=== PATIENT | female | born 1970 | race Caucasian/White ===

== ENCOUNTER 2018-12-09 17:26 | Observation (INO) ==
[2018-12-09] MEDS ORDERED: NS 1,000 ML IV ONE ×2 (18:39→21:36)
[2018-12-09 19:39] LABS: BASO# 0.03 X1000 (0.0-0.2); BASO% 0.3 % (0.0-0.8); EOS# 0.24 X1000 (0.0-0.7); EOS% 2.7 % (0.0-10.0); HEMATOCRIT 37.8 % (37.0-47.0); HEMOGLOBIN 11.9 g/dL (12.0-16.0); IMM GRAN# 0.02 X1000 (0.0-0.04); IMM GRAN% 0.2 % (0.0-0.5); LYMPH# 2.15 X1000 (1.2-3.4); LYMPH% 24.1 % (20.5-51.1); MCH 29.6 PG (27-31); MCHC 31.5 g/dL (33-37); MONO# 0.59 X1000 (0.11-0.59); MONO% 6.6 % (1.7-9.3); MPV 12.7 FL (7.4-10.4); NEUT# 5.88 X1000 (1.4-6.5); NEUT% 66.1 % (42.2-75.2); PLT 216 X1000 (130-400); RBC 4.02 XMIL (4.2-5.4); WBC 8.91 X1000 (4.8-10.8)
[2018-12-09 19:59] LABS: ALB/GLOB RATIO 0.9; ALBUMIN 3.6 g/dL (3.5-5.0); CALCIUM 8.8 mg/dL (8.8-10.2); CREATININE 1.3 mg/dL (0.5-0.9); POTASSIUM 4.4 mmol/L (3.5-5.1); TOTAL BILIRUBIN 0.49 mg/dL (0.20-1.00); TOTAL PROTEIN 7.4 g/dL (6.3-8.3)
[2018-12-09] MEDS ORDERED: ZOFRAN IV ONE (20:24)
[2018-12-10] MEDS ORDERED: DECADRON IV ONE (00:20)
[2018-12-10] MEDS ORDERED: PHENERGAN IM ONE (01:05)
[2018-12-10] MEDS ORDERED: PROAMATINE PO ONE (02:28)
[2018-12-10] MEDS ORDERED: NS 1,000 ML IV ONE (02:33)
[2018-12-10] MEDS ORDERED: REGLAN IV ONE (04:11)
--- NOTE | 2018-12-10 06:51 | HISTORY AND PHYSICAL ---
PRIMARY CARE PHYSICIAN: Dr. Roberts. CHIEF COMPLAINT: Passed out. HISTORY OF PRESENTING ILLNESS: A 48-year-old female with a history of coronary disease, hypertension, hyperlipidemia, and GERD, who had presented to the emergency department after she had an episode where she passed out. The patient states that she was going to the bathroom, then the next thing she remembers, she was on the floor. She was brought to the emergency department, where she was found to be somewhat hypotensive. She was given IV fluids, and she responded to it. However, due to her presenting symptoms, it was thought that we will place her for observation for further evaluation and management. At the time of my examination, she had denied any headache, fever, chills, chest pain, shortness of breath, hemoptysis, or weight changes, but complained of having some dizziness. PAST MEDICAL HISTORY: Includes coronary artery disease, hyperlipidemia, GERD, and hypertension. PAST SURGICAL HISTORY: Coronary stent, hysterectomy, cholecystectomy, appendectomy. ALLERGIES: Morphine, ketorolac, tramadol, and onions. CURRENT MEDICATIONS: Aspirin 81 mg p.o. daily, carvedilol 6.25 mg p.o. b.i.d., clonidine 0.1 mg p.o. at bedtime. Lexapro 20 mg p.o. daily, estradiol 1 mg p.o. daily, hydrocortisone 10 mg p.o. b.i.d., ibuprofen 800 mg p.o. q.6 hours p.r.n., losartan 100 mg p.o. daily, omeprazole 20 mg p.o. daily, quetiapine 150 mg p.o. daily, verapamil 120 mg p.o. at bedtime. SOCIAL HISTORY: She denies any history of smoking, alcohol, or illicit drug use. FAMILY HISTORY: Positive for coronary disease in mother and father. REVIEW OF SYSTEMS: Fourteen point review of systems as listed in HPI. Other systems all negative. PHYSICAL EXAMINATION: GENERAL: Cooperative, friendly female. She is resting more comfortably now. VITAL SIGNS: Temperature 98.1 degrees, pulse 70, respiration 18, blood pressure 90/54. HEENT: Atraumatic, normocephalic. Extraocular movements intact. PERRLA. NECK: No masses. CHEST: Clear to auscultation. CARDIOVASCULAR: Regular rate and rhythm. ABDOMEN: Soft, positive bowel sounds. EXTREMITIES: No edema. NEUROLOGIC: She is awake, alert, oriented x3. : No bladder distention. SKIN: Warm. LABORATORIES AND STUDIES: WBCs 8.91, hemoglobin 11.9, hematocrit 37.8, platelets 216,000. Sodium 142, potassium 4.4, chloride 108, CO2 is 19, BUN is 12, creatinine is 1.3, glucose 124. ASSESSMENT: A 48-year-old female with a history of coronary disease, hyperlipidemia, GERD, and hypertension, who had presented to emergency department after she had an episode, where she passed out. She states that she was going to the bathroom, when all of a sudden she was found on the floor. She did not exactly know what had happened. The patient was evaluated in the emergency department and due to her presenting symptoms, it was thought that we will place him for observation for further evaluation and management. IMPRESSION: 1. Syncopal episode. 2. Coronary artery disease. 3. Hyperlipidemia. 4. Gastroesophageal reflux disease. PLAN: 1. We will admit patient to medical floor with telemetry. 2. Continue with orthostatic blood pressure and pulse. 3. We will continue with gentle hydration. 4. We will check an echocardiogram. 5. Restart patient's other home medications except her antihypertensive agents. 6. We will monitor blood pressure closely. 7. We will put patient on DVT prophylaxis with SCDs. 8. We will continue to follow and reassess and make further recommendation based on patient's clinical course. cc: Florentino Culver MD
[2018-12-10] MEDS ORDERED: ZOFRAN IV PRN (07:31)
--- NOTE | 2018-12-10 07:35 | EKG Report ---
Test Performed on : 12/09/2018 6:45:26 PM Test Reason : ED. NO EKG ORDER FOR MUSE Blood Pressure : / mmHG Vent. Rate : 066 BPM Atrial Rate : 066 BPM P-R Int : 108 ms QRS Dur : 082 ms QT Int : 402 ms P-R-T Axes : 010 037 023 degrees QTc Int : 421 ms Sinus rhythm. with short SD Otherwise normal ECG When compared with ECG of 24-JUN-2018 19:44, T wave inversion no longer evident in Inferior leads Nonspecific T wave abnormality no longer evident in Anterolateral leads Unconfirmed Result
[2018-12-10] MEDS: NS 1,000 ML IV SCH ×3 (07:47→23:51)
[2018-12-10] MEDS: ANTIVERT PO PRN ×2 (10:25→20:22)
[2018-12-10] MEDS: PHENERGAN IV PRN ×3 (12:31→20:22)
--- NOTE | 2018-12-10 18:22 | ECHO REPORT ---
ORDER DATE: 12/10/2018 INTERPRETING PHYSICIAN: Dr. Cano REQUESTING PHYSICIAN: CLINICAL INDICATIONS: This is a 48-year-old female with chest pain, coronary heart disease. M-MODE MEASUREMENTS: Right ventricle: cm. Left ventricle end diastole: 3.3 cm. Left ventricle end systole: 2.1 cm. Posterior wall: 1.2 cm. Interventricular septum: 1.2 cm. Left atrium: 4.4 cm. Aortic root: 2.5 cm. SUMMARY OF 2-DIMENSIONAL IMAGIN. The left ventricular function is normal. Ejection fraction is estimated at 65% to 70%. No wall motion abnormality noted. 2. The aortic valve looks normal. Color flow mapping is unremarkable. 3. Mitral valve looks normal. Color flow mapping is unremarkable. 4. Pulse wave Doppler of mitral inflow is normal. 5. Tissue Doppler of septal and lateral mitral annulus averages 8 cm. 6. Pulmonary venous flow is normal. 7. There is no diastolic dysfunction. 8. Tricuspid valve looks normal. Color flow mapping is unremarkable. 9. There is no pulmonary hypertension. 10.Pulmonic valve looks normal. Color flow mapping is unremarkable. 11.There is no pericardial effusion, mass or thrombus. Clinical correlation is recommended. cc: MD Florentino Toure MD
[2018-12-10] MEDS: LIPITOR PO SCH (20:21)
--- NOTE | 2018-12-11 00:12 | PROVIDER DOCUMENTATION ---
This chart was entered by Mercedes Omalley Scribe, acting as scribe for David Pacheco MD. HPI-General Adult - General Chief Complaint: B/P Problems Stated Complaint: FLORES, LOW BP Time Seen by Provider: 12/09/18 18:23 Source: patient Allergies/Adverse Reactions: Patient Allergies Allergy/AdvReac Type Severity Reaction Status Date / Time ketorolac [From Toradol] Allergy RASH Verified 06/24/18 20:39 morphine Allergy FLUSHING Verified 06/24/18 20:39 onion Allergy ANAPHYLAXIS Verified 06/24/18 20:39 tramadol Allergy RASH Verified 06/24/18 20:39 migraine medications Allergy Unknown Uncoded 06/24/18 20:39 Home Medications: Home Medication List Medication Instructions Recorded Confirmed Last Taken Type Estradiol 1 mg PO DAILY 01/07/18 12/10/18 12/09/18 07:00 History Omeprazole [Prilosec] 20 mg PO DAILY@0700 01/07/18 12/10/18 12/09/18 07:00 History Carvedilol [Coreg] 6.25 mg PO BID #60 tab 02/05/18 12/10/18 12/09/18 07:00 Rx Losartan Potassium 100 mg PO DAILY 04/12/18 12/10/18 12/09/18 07:00 History Promethazine [Phenergan] 25 mg PO Q6H PRN PRN #20 tab 04/12/18 12/10/18 11:00 Rx Aspirin 325 mg PO DAILY 12/10/18 12/10/18 12/09/18 07:00 History Atorvastatin Calcium [Lipitor] 40 mg PO QHS 12/10/18 12/10/18 12/08/18 21:00 History Sertraline HCl [Zoloft] 100 mg PO DAILY 12/10/18 12/10/18 12/09/18 07:00 History - History of Present Illness -Gen Adult Nature of Presenting Problems: Pt is 48/f presenting to ED w/ c/o low blood pressure. She sts that she has hx of adrenal gland deficiency and that she used to take steroids for the problem ( that was 4 years ago). She sts that she usually has HTN and takes takes medications for that but stopped taking them a few days ago when her pressure started to get low. This morning she woke up and her bp read 50/31. She called her DrGarcia and was instructed to come to ED. She reports having an incident where she got up to go to the bathroom and then woke up sometime later in the floor. She now sts that she feels h/a, dizziness, nausea as well as shaky w/ some numbness and tingling in her hands and fingers. Location of Pain/Injury: reports: none (no pain), upper extremity (numbness in hands) Pain Radiation: reports: no radiation Severity: reports: moderate Onset/Duration: reports: this morning Timing: reports: still present Context/Activities at Onset: reports: none Modifying Factors: improves with: nothing Associated Symptoms: reports: headaches, nausea, syncope, weakness. denies: shortness of breath, vomiting Similar Symptoms Previously?: No Recently seen or treated by another doctor?: No Review of Systems - Adult - REVIEW OF SYSTEMS - ADULT Constitutional: reports: no symptoms reported. denies: chills, fever Eyes: reports: no symptoms reported Ears, Nose, Mouth & Throat: reports: no symptoms reported Cardiovascular: reports: no symptoms reported. denies: chest pain, edema Respiratory: reports: no symptoms reported Gastrointestinal: reports: nausea. denies: abdominal pain, diarrhea, vomiting Genitourinary: reports: no symptoms reported Musculoskeletal: reports: no symptoms reported Integumentary: reports: no symptoms reported Neurological: reports: dizziness/vertigo, headache/migraines Psychiatric: reports: no symptoms reported Endocrine: reports: no symptoms reported Hematologic/Lymphatic: reports: no symptoms reported Allergic/Immunologic: reports: no symptoms reported All Other Systems: Reviewed and Negative Past History - Adult - PAST MEDICAL HISTORY-ADULT Review of Records: reports: Old Records Reviewed, Nursing Assessment Review, Medications Reviewed, Social history reviewed & non-contributory. Major Childhood Illnesses: reports: denies history Cardiovascular: reports: CAD, CHF, HTN, NC Respiratory: reports: denies history Gastrointestinal: reports: denies history Obstetrical/Gynecological: reports: other (cervical cancer) Genitourinary: reports: denies history Musculoskeletal: reports: chronic pain Neurological: reports: other (dysautomia) Psychiatric: reports: denies history Endocrine/Immune: reports: adrenal insufficiency Other Conditions: reports: other (adrenal gland deficiency; aneurysm of optic nerve) - PRIOR SURGERIES/PROCEDURES Surgical/Procedure History: reports: appendectomy, cholecystectomy, cardiac stent, hysterectomy, tonsillectomy, other (loop monitor) - IMMUNIZATION STATUS Childhood Immunizations: See Nurse Assessment Flu Vaccine: See Nurse Assessment - FAMILY HISTORY Family History: reviewed, not pertinent - SOCIAL HISTORY Smoking: denies, non-smoker Substance Use: none/never Alcohol Use Frequency: never Physical Exam-General - PHYSICAL EXAM-ADULT Initial Vital Signs Reviewed: Yes - CONSTITUTIONAL General Appearance: appears well, alert, no apparent distress - EYES Eyes: PERRL/EOMI - HEAD, EARS, NOSE, MOUTH & THROAT HENMT: moist mucous membranes, normal ENT inspection, TMs normal, pharynx normal - NECK Neck: non-tender, full range of motion, supple, normal inspection - RESPIRATORY Respiratory: chest non-tender, lungs clear, normal breath sounds - CARDIOVASCULAR Cardiovascular: normal peripheral pulses, regular rate, rhythm - GASTROINTESTINAL (ABDOMEN) Abdominal Exam: normal bowel sounds, soft - MUSCULOSKELETAL Extremity: normal range of motion, non-tender, normal gait, normal inspection - SKIN Integumentary: normal color, warm/dry - NEUROLOGIC Neurologic: grossly normal, no motor/sensory deficits. negative: aphasia, facial droop, focal weakness, motor weakness - PSYCHIATRIC Psych/Mental Status: normal mood/affect, normal thought content, normal thought process, oriented x 3 (Pt is laying in bed comfortably at time of exam, non toxic in appearance.) Progress - PLAN OF CARE/RESULTS Progress/Plan/Lab Results: Vital Signs - 8 hr 12/09/18 17:42 Temperature 98.1 F Pulse Rate 70 Respiratory Rate 18 Blood Pressure 90/54 O2 Sat by Pulse Oximetry 100 Patient Hx, physical exam, assessment and plan discussed with the attending physician Dr. Durán and he agree with the plan as documented. Result Diagrams: 12/09/18 19:16 12/09/18 19:16 - REASSESSMENT Reassessment #1 Time Reassessed: 19:56 Status: improving (BP improving with fluid.) Reassessment #2 Time Reassessed: 21:32 Status: other (Patient still hypotensive despite 2 L of fluid MAP 67-70. I called Dr. Culver for admission. he request another liter of NS, if still hypotensive he will admit.) - EKG 1 Time of EKG reading by physician:: 18:45 EKG Read and Signed by:: Kota Ch EKG Interpretation (*Must complete 3 of following elements*): Normal (Sinus rhythm with short IL, Otherwise normal ECG) Rate: 66 Rhythm: sinus - CONSULTS/PCP/HOSPITALIST Notification #1 *Consult/PCP/Hospitalist*: Dr. Florentino Culver Time Discussed: 04:29 Consult Disposition: Admit (Accepted.) Departure - Departure Date of Disposition Decision: 12/10/18 Time of Disposition Decision: 04:28 DIAGNOSIS: Elevated serum creatinine, Lightheadedness Hypotension Qualifiers: Hypotension type: idiopathic hypotension Qualified Code(s): I95.0 - Idiopathic hypotension Syncope Qualifiers: Syncope type: unspecified Qualified Code(s): R55 - Syncope and collapse Disposition: ADMITTED INPATIENT 09 Certified Medical Emergency: Emergent Condition: Stable - Critical Care Note This patient required my direct & personal management of CC.: No Attestation - Physician/ ALEXSANDRA Attestation Patient care was provided by Advanced Practice Provider:: No The physician spent face to face time with patient:: Yes Advanced Practice Provider documentation review:: Supervising physician onsite and consulted in the evaluation and care of this patient. The physician did have a face to face encounter with the patient. This chart was documented by the indicated scribe, (Mercedes Omalley, Ilene) and accurately reflects the services I performed and decisions made by me, David Pacheco MD, as attested by the provider's signature.
[2018-12-11] MEDS: PHENERGAN IV PRN ×5 (02:00→21:56)
[2018-12-11 04:02] LABS: UR AMPHETAMINES QUAL NONE DETECTED (NONE DETECT); UR BARBITUATES QUAL NONE DETECTED (NONE DETECT); UR BENZODIAZEPIN QUAL NONE DETECTED (NONE DETECT); UR CANNABINOIDS QUAL NONE DETECTED (NONE DETECT); UR COCAINE QUAL NONE DETECTED (NONE DETECT); UR METHADONE QUAL NONE DETECTED (NONE DETECT); UR OPIATES QUAL NONE DETECTED (NONE DETECT); UR OXYCODONE QUAL NONE DETECTED (NONE DETECT); UR PCP QUAL NONE DETECTED (NONE DETECT)
[2018-12-11] MEDS: PRILOSEC PO SCH (05:59)
[2018-12-11 08:00] LABS: BASO# 0.01 X1000 (0.0-0.2); BASO% 0.1 % (0.0-0.8); HEMATOCRIT 33.4 % (37.0-47.0); HEMOGLOBIN 10.3 g/dL (12.0-16.0); IMM GRAN# 0.02 X1000 (0.0-0.04); IMM GRAN% 0.2 % (0.0-0.5); LYMPH# 1.42 X1000 (1.2-3.4); LYMPH% 13.1 % (20.5-51.1); MCH 29.5 PG (27-31); MCHC 30.8 g/dL (33-37); MCV 95.7 FL (81-99); MONO# 0.54 X1000 (0.11-0.59); MPV 12.8 FL (7.4-10.4); NEUT# 8.84 X1000 (1.4-6.5); NEUT% 81.6 % (42.2-75.2); PLT 190 X1000 (130-400); RBC 3.49 XMIL (4.2-5.4); WBC 10.83 X1000 (4.8-10.8)
[2018-12-11 08:10] LABS: CALCIUM 8.4 mg/dL (8.8-10.2); CREATININE 1.1 mg/dL (0.5-0.9); POTASSIUM 4.9 mmol/L (3.5-5.1)
[2018-12-11] MEDS: ESTRACE PO SCH (08:30)
[2018-12-11] MEDS: ZOLOFT PO SCH (08:30)
[2018-12-11] MEDS: ASPIRIN PO SCH (08:30)
[2018-12-11] MEDS ORDERED: CORTROSYN IV ONE (09:28)
[2018-12-11] MEDS: ANTIVERT PO PRN (15:30)
[2018-12-11] MEDS: SOLU-CORTEF IV SCH ×2 (15:31→21:57)
[2018-12-11] MEDS: HUMULIN R SUBQ SCH ×2 (16:50→20:04)
[2018-12-11] MEDS: TYLENOL PO PRN (19:55)
[2018-12-11] MEDS: LIPITOR PO SCH (20:03)
[2018-12-11] MEDS: SODIUM CHLORIDE 0.9% INJ PRN (21:57)
[2018-12-11] MEDS ORDERED: STERILE WATER INJ. ONE (22:00)
--- NOTE | 2018-12-12 00:01 | PROGRESS NOTE ---
DATE: 12/11/2018 SUBJECTIVE: This morning, Ms. Barney refers to be doing a lot better. She has not had any more dizziness, has not had any more fall. Of note, Ms. Barney refers to be hypertensive and takes clonidine whenever the blood pressure is extremely high. She also has multiple occasions where she has been remarkably hypotensive, and her physician has tried her on midodrine whenever the blood pressure is that low. In any case, she refers that for the past couple days she realized the blood pressure was low. She took multiple doses of midodrine, but that did not help. Came in because she went to use the restroom, and she just did not know what happened next, found herself on the bathtub. She is now complaining of some neck pains. Briefly, Ms. Barney seems to have been told that she had dysautonomia syndrome in the past. She is chronically on estradiol after a total hysterectomy. OBJECTIVE: Vital Signs: Blood pressure is now 129/67, pulse is 74, respirations 18, temperature 97.9 degrees. The patient got admitted with a blood pressure of 90/54. It went down to 77/46, and it ran a couple of low numbers for a long time before it got better. The patient got a dose of dexamethasone on admission. General: Ms. Barney is a 48-year-old female. She is in bed. She is not in any cardiopulmonary distress. Mucosa is pink and moist. Anicteric. Acyanotic. Neck: Supple. There is no JVD. No carotid bruit. She has very poor dentition, especially on the top gum. Respiratory: There is good air entry bilaterally. There are no crepitations, no rhonchi. Cardiovascular: Regular rate and rhythm. No murmurs , no rubs, no gallops. Abdomen: Soft, nontender. Bowel sounds present. There is no hepatosplenomegaly. Extremities: No pedal edema. BIOSECURITY OFFICER: The patient is awake, alert, oriented. There is no focal neurological deficit. LABORATORY DATA: WBC is 10.83, hemoglobin is 10.3, platelet count of 190,000. Sodium is 141, potassium is 4.9, chloride is 90, chloride is 112, creatinine is down to 1.3. The patient's cortisol level was 0.3 early this morning, which is extremely low, especially in the face of this significant hypotension. ASSESSMENT AND PLAN: 1. Syncope, associated with extreme low blood pressure (questionable orthostatic hypotension). The patient seems to have been on blood pressure medication, so this could have influenced that, but I think she also has significant evidence on chemistry that she is renally insufficient. Cortisol level is 0.4, in the face of this hypotension. We will also do the cosyntropin challenge test to see if there is any adequate response. I think part of the problem is that Ms. Barney has been on estradiol, which is a form of steroid, for a very long time. That is a sex steroid, which does not have the vasoactive blood pressure properties, and I think because of that, her ACTH is low, and the whole axis, the adrenal-hypophysis axis, has been depressed. I think she would eventually need hydrocortisone for her adrenal insufficiency. We will , however, wait on the cortisol response before we commit her on long-term medications. I also think that she needs to follow up with an labor arbitrator hearing office. 2. History of coronary artery disease, status post stents noted. 3. Morbid obesity, with BMI of 37.3. The patient has been counseled. 4. Dyslipidemia. The patient is on atorvastatin. We will continue with that. cc: Gavin Nguyen MD MTDEl
[2018-12-12] MEDS: PHENERGAN IV PRN ×5 (01:54→18:45)
[2018-12-12] MEDS: TYLENOL PO PRN (01:54)
[2018-12-12] MEDS: SODIUM CHLORIDE 0.9% INJ PRN (01:54)
[2018-12-12] MEDS: ANTIVERT PO PRN ×3 (05:49→22:07)
[2018-12-12] MEDS: PRILOSEC PO SCH ×2 (05:49→06:01)
[2018-12-12] MEDS: SOLU-CORTEF IV SCH (05:49)
[2018-12-12] MEDS: HUMULIN R SUBQ SCH ×3 (06:29→16:47)
[2018-12-12 07:35] LABS: BASO# 0.02 X1000 (0.0-0.2); BASO% 0.2 % (0.0-0.8); HEMATOCRIT 36.1 % (37.0-47.0); HEMOGLOBIN 11.1 g/dL (12.0-16.0); IMM GRAN# 0.06 X1000 (0.0-0.04); IMM GRAN% 0.5 % (0.0-0.5); LYMPH# 1.86 X1000 (1.2-3.4); MCH 29.5 PG (27-31); MCHC 30.7 g/dL (33-37); MONO% 4.8 % (1.7-9.3); MPV 12.4 FL (7.4-10.4); NEUT% 79.5 % (42.2-75.2); PLT 209 X1000 (130-400); RBC 3.76 XMIL (4.2-5.4); RDW 14.4 % (11.5-14.5); WBC 12.44 X1000 (4.8-10.8)
[2018-12-12 08:10] LABS: ALBUMIN 3.4 g/dL (3.5-5.0); CALCIUM 7.7 mg/dL (8.8-10.2); CREATININE 1.1 mg/dL (0.5-0.9); POTASSIUM 4.3 mmol/L (3.5-5.1); TOTAL BILIRUBIN 0.22 mg/dL (0.20-1.00); TOTAL PROTEIN 6.9 g/dL (6.3-8.3)
[2018-12-12] MEDS: ASPIRIN PO SCH (09:54)
[2018-12-12] MEDS: ESTRACE PO SCH (09:54)
[2018-12-12] MEDS: ZOLOFT PO SCH (09:54)
[2018-12-12] MEDS: COZAAR PO SCH (09:57)
[2018-12-12] MEDS: NORCO-7.5 PO PRN ×2 (12:00→18:45)
[2018-12-12] MEDS: FLEXERIL PO SCH ×2 (12:00→21:59)
--- NOTE | 2018-12-12 12:46 | Diag Imaging Result Doc PS360 ---
NECK AP AND/OR LAT SOFT TISSUE - 12/12/2018 INDICATION: neck pain after fall TECHNIQUE: Two views COMPARISON: None FINDINGS: The soft tissues of the neck are normal. The airway is clear. The epiglottis is normal. No fracture or subluxation to the cervical spine. IMPRESSION: Negative exam. Electronically signed by Ifeanyi Cyr 12/12/2018 12:44 PM
--- NOTE | 2018-12-12 13:10 | PROGRESS NOTE ---
DATE: 12/12/2018 SUBJECTIVE: This morning Ms. Barney refers to be doing fairly okay. She says she has been having some pain on the left side of her neck and that originated after she fell. OBJECTIVE: Vital signs: Blood pressure is now up to 159/86, pulse is 77, respiration is 18, temperature is 98.1 degrees. General exam: Ms. Barney is a 48-year-old female. She is in bed in no distress. HEENT: Mucosa is pink and moist. Anicteric. Acyanotic. Neck: Neck is supple. There is some tenderness on the palpation of the paraspinal muscle on the cervical area, as well as the left side of the neck. The patient does have a normal range of movement. Chest: Good air entry bilaterally. There were no crepitations, no rhonchi. Cardiovascular: Regular rate and rhythm. No murmurs, no rubs, no gallops. GI: Abdomen is soft. It is distended, but nontender. Bowel sounds are present. Extremities: No pedal edema. Distal pulses present. EXTRUSION MACHINE OPERATOR: Patient is awake, alert, oriented. There is no focal neurological deficit. Mouth with poor dentition. LABORATORY DATA: WBC is 12.44. Hemoglobin is 11.1, platelet count of 209. Chemistry is also reviewed: Sodium is 144, potassium is 4.3, chloride is 112, bicarbonate is 21, creatinine is 1.1. Cortisol response has been reviewed and patient is remarkably adrenal insufficient. ASSESSMENT: 1. Syncope at home secondary to hypotension, improved. 2. Persistent hypotension secondary to severe adrenal insufficiency. It appears that this is probably drug-induced from the chronic sex steroids that the patient has been on after JOHN. We started her on high-dose hydrocortisone 10 mg b.i.d. and she would follow up with Endocrine. 3. History of coronary artery disease. 4. Morbid obesity with body mass index of 37.3. Weight management has been advised. 5. Dyslipidemia. Will continue with statin. 6. Musculoskeletal pain to the left neck and paraspinal muscle of the cervical spine. We started the patient on Flexeril and oral [place]. PLAN: So, in general, I think Ms. Barney is remarkably stable. She is no more hypotensive. We have started her back on a very low dose of her blood pressure medication, which is losartan, and I have started her on b.i.d. Solu-Cortef 10 mg per day. The patient has been advised to follow up with an rigger helper. We are going to observe her overnight because of the pain in her neck. If there is improvement, I think we will be able to discharge her tomorrow. We will also do an neck x-ray to just rule out any possibility of a fracture. cc: Gavin Nguyen MD MTDD
[2018-12-12] MEDS: CORTEF PO SCH (21:59)
[2018-12-12] MEDS: LIPITOR PO SCH (21:59)
[2018-12-13] MEDS: NORCO-7.5 PO PRN ×3 (00:29→12:17)
[2018-12-13] MEDS: PHENERGAN PO PRN ×3 (00:30→12:19)
[2018-12-13] MEDS: HUMULIN R SUBQ SCH ×3 (02:57→12:17)
[2018-12-13] MEDS: FLEXERIL PO SCH ×2 (05:10→12:18)
[2018-12-13] MEDS: PRILOSEC PO SCH (06:46)
[2018-12-13 07:16] VITALS: BP 156/89
[2018-12-13 07:28] LABS: HEMATOCRIT 35.8 % (37.0-47.0); HEMOGLOBIN 11.1 g/dL (12.0-16.0); MCV 96.8 FL (81-99); MPV 12.3 FL (7.4-10.4); RBC 3.7 XMIL (4.2-5.4); RDW 14.2 % (11.5-14.5); WBC 9.9 X1000 (4.8-10.8)
[2018-12-13 07:47] LABS: POTASSIUM 4.2 mmol/L (3.5-5.1)
[2018-12-13] MEDS: ZOLOFT PO SCH (09:10)
[2018-12-13] MEDS: ESTRACE PO SCH (09:10)
[2018-12-13] MEDS: ASPIRIN PO SCH (09:10)
[2018-12-13] MEDS: CORTEF PO SCH (09:11)
[2018-12-13] MEDS: COZAAR PO SCH (09:11)
[2018-12-13] MEDS: ANTIVERT PO PRN (12:19)
--- NOTE | 2018-12-13 13:48 | DISCHARGE SUMMARY ---
ADMISSION DATE: 12/10/2018 DISCHARGE DATE: 12/13/2018 CONSULTATIONS DURING THIS ADMISSION: None. IMAGING STUDIES OF SIGNIFICANCE: A chest x-ray of the neck was negative. An echocardiogram did show ejection fraction of 65 to 70 percent with no wall abnormality. Initial EKG showed normal sinus rhythm. Rate was about 68. No ST or T-wave abnormality. ADMISSION DIAGNOSES: 1. Syncopal episode. 2. Coronary artery disease. 3. Dyslipidemia. 4. Gastroesophageal reflux disease. DIAGNOSES AT THE TIME OF DISCHARGE: 1. Syncope at home secondary to orthostatic hypotension. 2. Persistent hypotension secondary to severe adrenal insufficiency, both cosyntropin test as well as ACTH showed low numbers consistent with probably a secondary cause of the adrenal insufficiency. A pituitary disease cannot be entirely ruled out. Patient is on sex hormone therapy Unfortunately, Ms. Barney cannot do an MRI because of a event loop recorder - cardiac device, so she has been advised to follow up with endocrine. 3. History of coronary artery disease currently asymptomatic. 4. Morbid obesity with BMI of 37.3 with management advised. 5. Dyslipidemia. Will continue with statin. 6. Musculoskeletal pain to the left neck. 7. Poor dentition. Patient advised to follow up with dental care. PRESENTING COMPLAINT: Passed out. HISTORY OF PRESENTING COMPLAINT: Ms. Barney is a 48-year-old female who came to the emergency department after she was passed out. According to her, blood pressures have been getting lower and lower about 3 days prior to passing out. Upon presenting, her vitals did reveal her blood pressure was 90/58, that went down to about 88/56. Lowest recorded was about 77/46. The patient was admitted for further medical care. HOSPITAL COURSE: Ms. Barney was admitted to the medical floor. She was adequately hydrated. Blood pressure medications were withheld. During the hospital course we did some we did a cortisol level which was 0.4, remarkably low. A cosyntropin test was subsequently done which revealed nonresponse to hydrochlorothiazide. An ACTH Level itself was also done which showed remarkably low at less than 3.0, which would be consistent with either and iatrogenic or an external use of steroids or from a true secondary adrenal insufficiency. In any case the patient cannot get an MRI done because she has a cardiac device. She has been advised to follow up with Endocrine on outpatient basis. The patient was started on stress doses of steroids and this has been transitioned to oral hydrocortisone and since then her blood pressures have been remarkably improved. This morning Ms. Barney refers to be doing a lot better. She has not had any more syncopal episodes. No more dizziness. She is stable for discharge. She is going to follow up with her primary care doctor, DR. Roberts, and also Endocrine that she has been advised to call and make an appointment. At the time of the discharge, her vitals, blood pressure is 156/89, pulse is 65 , respiration is 16, temperature is 97.8 degrees. All the discharge instructions were discussed with Ms. Barney and she voices understanding. TIME SPENT: Time spent for discharge is 36 minutes. cc: MD Gavin Roque MD MTDD
== END 2018-12-13 14:28 | disposition home or self-care (01) ==
LOC: SUPCPDRO → EDIPHOLD 17:26 → ED 17:26 → SUATTDRO 12-10 07:27 → 3N 12-10 11:57
PROVIDERS: ATTEND Internal Medicine
CPT/HCPCS: 70360; 80048; 80053; 80101; 80301; 80307; 80324; 80345; 80346; 80353; 80358; 80361; 80365; 82024; 82533; 83992; 84443; 85025; 85027; 93005; 93306; 96361; 96372; 96374; 96375; 96376; 99285; A9270; C8929; G0431; G0434; G0479; G0480; J0834; J1720; J2405; J2550; J2765; J7030; Q9957

== ENCOUNTER 2019-08-10 14:22 | Inpatient (IN) ==
[2019-08-10] MEDS ORDERED: NS 1,000 ML IV ONE ×3 (14:43→20:51)
[2019-08-10 15:17] LABS: BASO# 0.02 X1000 (0.0-0.2); BASO% 0.2 % (0.0-0.8); EOS# 0.31 X1000 (0.0-0.7); EOS% 3.6 % (0.0-10.0); HEMATOCRIT 35.6 % (37.0-47.0); HEMOGLOBIN 11.4 g/dL (12.0-16.0); IMM GRAN# 0.01 X1000 (0.0-0.04); IMM GRAN% 0.1 % (0.0-0.5); LYMPH% 32.1 % (20.5-51.1); MCH 28.4 PG (27-31); MCV 88.6 FL (81-99); MONO# 0.62 X1000 (0.11-0.59); MONO% 7.1 % (1.7-9.3); MPV 12.1 FL (7.4-10.4); NEUT# 4.95 X1000 (1.4-6.5); NEUT% 56.9 % (42.2-75.2); PLT 263 X1000 (130-400); RBC 4.02 XMIL (4.2-5.4); RDW 13.9 % (11.5-14.5); WBC 8.71 X1000 (4.8-10.8)
--- NOTE | 2019-08-10 15:30 | Diag Imaging Result Doc PS360 ---
EXAM: CT HEAD W/O CONTRAST HISTORY: fall TECHNIQUE: CT head without contrast COMPARISON: None. FINDINGS: No parenchymal hemorrhage. No epidural or subdural hematoma. No subarachnoid hemorrhage. No mass identified on this noncontrasted exam. No hydrocephalus. No skull fracture. IMPRESSION: No intracranial hemorrhage. This exam was performed using automated exposure control, adjustment of mA or kV according to patient size, and/or use of iterative reconstruction technique. Electronically signed by Swapnil Barney 08/10/2019 3:27 PM
[2019-08-10 15:34] LABS: ALBUMIN 3.9 g/dL (3.5-5.0); TOTAL BILIRUBIN 0.5 mg/dL (0.20-1.00); TOTAL PROTEIN 7.6 g/dL (6.3-8.3)
[2019-08-10 15:49] LABS: AMYLASE 13 U/L (20-200); CK PROFILE 136 U/L (24-173)
--- NOTE | 2019-08-10 15:49 | EKG Report ---
Test Performed on : 08/10/2019 3:40:19 PM Test Reason : DIZZINESS Blood Pressure : / mmHG Vent. Rate : 054 BPM Atrial Rate : 054 BPM P-R Int : 164 ms QRS Dur : 096 ms QT Int : 476 ms P-R-T Axes : 039 038 023 degrees QTc Int : 451 ms Sinus bradycardia. Otherwise normal ECG When compared with ECG of 09-DEC-2018 18:45, AR interval has increased Unconfirmed Result
--- NOTE | 2019-08-10 17:24 | PROVIDER DOCUMENTATION ---
This chart was entered by Christelle Sosa Scribe, acting as scribe for Juany Gloria MD. HPI-Head Injury - General Chief Complaint: Dizziness Stated Complaint: Fall Time Seen by Provider: 08/10/19 14:29 Source: patient Allergies/Adverse Reactions: Patient Allergies Allergy/AdvReac Type Severity Reaction Status Date / Time ketorolac [From Toradol] Allergy RASH Verified 06/24/18 20:39 morphine Allergy FLUSHING Verified 06/24/18 20:39 onion Allergy ANAPHYLAXIS Verified 06/24/18 20:39 sumatriptan [From Imitrex] Allergy Unknown Unverified 08/10/19 14:21 tramadol Allergy RASH Verified 06/24/18 20:39 migraine medications Allergy Unknown Uncoded 06/24/18 20:39 Home Medications: Home Medication List Medication Instructions Recorded Confirmed Last Taken Type Estradiol 1 mg PO DAILY 01/07/18 12/10/18 12/09/18 07:00 History Omeprazole [Prilosec] 20 mg PO DAILY@0700 01/07/18 12/10/18 12/09/18 07:00 History Carvedilol [Coreg] 6.25 mg PO BID #60 tab 02/05/18 12/10/18 12/09/18 07:00 Rx Promethazine [Phenergan] 25 mg PO Q6H PRN PRN #20 tab 04/12/18 12/10/18 06/24/18 11:00 Rx Aspirin 325 mg PO DAILY 12/10/18 12/10/18 12/09/18 07:00 History Atorvastatin Calcium [Lipitor] 40 mg PO QHS 12/10/18 12/10/18 12/08/18 21:00 History Sertraline HCl [Zoloft] 100 mg PO DAILY 12/10/18 12/10/18 12/09/18 07:00 History Cyclobenzaprine [Flexeril] 5 mg PO Q8H #30 tab 12/13/18 Unknown Rx Hydrocodone/APAP 7.5 mg/325 mg 1 ea PO Q6H PRN PRN #20 tab 12/13/18 Unknown Rx [Lamont-7.5] Hydrocortisone [Cortef] 10 mg PO BID #60 tab 12/13/18 Unknown Rx Losartan [Cozaar] 25 mg PO DAILY #120 tab 12/13/18 Unknown Rx Cyclobenzaprine [Flexeril] 10 mg PO TID PRN #15 tab 02/25/19 Unknown Rx Ibuprofen [Motrin] 800 mg PO TID PRN #15 tab 02/25/19 Unknown Rx - History of Present Illness-Head Injury Nature of Presenting Problem: Patient is a 49 year old female who presents to the ED after having a head injury. States falling 2 days ago and hitting head. Reports having nausea, vomiting, headache and dizziness after head injury Quality of Pain: reports: aching Severity: reports: mild Onset/Duration: reports: 2 days ago Timing: reports: still present, getting worse Method of Injury: reports: fell Any recent trauma/injury?: reports: to head Injury Associated Symptoms: reports: dizziness, headaches, nausea, vomiting Locality of Occurance: Home Similar Symptoms Previously?: Yes Recently seen or treated by another doctor?: No Review of Systems - Adult - REVIEW OF SYSTEMS - ADULT Constitutional: reports: no symptoms reported Eyes: reports: no symptoms reported Ears, Nose, Mouth & Throat: reports: no symptoms reported Cardiovascular: reports: no symptoms reported Respiratory: reports: no symptoms reported Gastrointestinal: reports: see HPI, nausea, vomiting. denies: abdominal pain Genitourinary: reports: no symptoms reported Musculoskeletal: reports: no symptoms reported Integumentary: reports: no symptoms reported Neurological: reports: dizziness/vertigo (dizziness), headache/migraines (FLORES), other (head injury). denies: seizure, syncope Psychiatric: reports: no symptoms reported Endocrine: reports: no symptoms reported Hematologic/Lymphatic: reports: no symptoms reported Allergic/Immunologic: reports: no symptoms reported All Other Systems: Reviewed and Negative Past History - Adult - PAST MEDICAL HISTORY-ADULT Review of Records: reports: Old Records Reviewed, Social history reviewed & non-contributory. Major Childhood Illnesses: reports: denies history Cardiovascular: reports: CAD, CHF, HTN, [place] Respiratory: reports: denies history Gastrointestinal: reports: denies history Obstetrical/Gynecological: reports: other (cervical cancer) Genitourinary: reports: denies history Musculoskeletal: reports: chronic pain Neurological: reports: other (dysautomia) Psychiatric: reports: denies history Endocrine/Immune: reports: adrenal insufficiency Other Conditions: reports: other (adrenal gland deficiency; aneurysm of optic nerve) - PRIOR SURGERIES/PROCEDURES Surgical/Procedure History: reports: appendectomy, cholecystectomy, cardiac stent, hysterectomy, tonsillectomy, other (loop monitor) - IMMUNIZATION STATUS Childhood Immunizations: See Nurse Assessment Flu Vaccine: See Nurse Assessment - FAMILY HISTORY Family History: reviewed, not pertinent - SOCIAL HISTORY Smoking: denies Substance Use: denies Physical Exam- Neurological - Physical Exam-Neuro General Appearance: alert, no apparent distress. negative: lethargic Eye Exam: bilateral eye: normal inspection HENMT: normocephalic/atraumatic, moist mucous membranes. negative: angioedema Head Injury: no evidence of injury. negative: active bleeding, lacerations, swelling Respiratory: chest non-tender, lungs clear, normal breath sounds. negative: crackles, rhonchi Cardiovascular: normal peripheral pulses, regular rate, rhythm. negative: tachycardia Abdominal Exam: normal bowel sounds, non tender, soft. negative: guarding, rigid Extremity: non-tender, normal inspection. 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 negative: facial droop Motor/Sensory: no motor deficit, no sensory deficit, no pronator drift. negative: sensory deficit Neurologic: grossly normal, no motor/sensory deficits. negative: aphasia, facial droop Integumentary: normal color, normal turgor, warm/dry. negative: diaphoresis, ecchymosis, laceration(s) Psych/Mental Status: normal mood/affect, oriented x 3. negative: anxious Progress - PLAN OF CARE/RESULTS Progress/Plan/Lab Results: Vital Signs - 8 hr 08/10/19 14:17 08/10/19 14:30 08/10/19 14:39 Temperature 97.6 F Pulse Rate 67 67 69 Respiratory Rate 14 13 13 Blood Pressure 95/67 95/67 85/57 O2 Sat by Pulse Oximetry 96 97 97 08/10/19 15:41 Temperature Pulse Rate 57 L Respiratory Rate 13 Blood Pressure 133/92 O2 Sat by Pulse Oximetry 97 Laboratory Results - last 24 hr 08/10/19 08/10/19 08/10/19 15:00 15:00 15:00 WBC 8.71 RBC 4.02 L Hgb 11.4 L Hct 35.6 L MCV 88.6 MCH 28.4 MCHC 32.0 L RDW Std Deviation 13.9 Plt Count 263 MPV 12.1 H Immature Gran % (Auto) 0.1 Neut % (Auto) 56.9 Lymph % (Auto) 32.1 Blanco % (Auto) 7.1 Eos % (Auto) 3.6 Baso % (Auto) 0.2 Immature Gran # (Auto) 0.01 Neut # (Auto) 4.95 Lymph # (Auto) 2.80 Blanco # (Auto) 0.62 H Eos # (Auto) 0.31 Baso # (Auto) 0.02 Sodium Potassium Chloride Carbon Dioxide Anion Gap BUN Creatinine Estimated GFR/1.73 m2 BUN/Creatinine Ratio Glucose Calculated Osmolality Calcium Total Bilirubin AST ALT Alkaline Phosphatase Creatine Kinase 136 Troponin T < 0.010 Total Protein Albumin Globulin Albumin/Globulin Ratio Amylase 13 L Lipase 08/10/19 15:00 WBC RBC Hgb Hct MCV MCH MCHC RDW Std Deviation Plt Count MPV Immature Gran % (Auto) Neut % (Auto) Lymph % (Auto) [place]anco % (Auto) Eos % (Auto) Baso % (Auto) Immature Gran # (Auto) Neut # (Auto) Lymph # (Auto) Bl[place] # (Auto) Eos # (Auto) Baso # (Auto) Sodium 140 Potassium 4.0 Chloride 105 Carbon Dioxide 19 L Anion Gap 16 BUN 10 Creatinine 1.0 H Estimated GFR/1.73 m2 59 BUN/Creatinine Ratio 10 Glucose 102 Calculated Osmolality 279 Calcium 9.0 Total Bilirubin 0.50 AST 20 ALT 14 Alkaline Phosphatase 166 H Creatine Kinase Troponin T Total Protein 7.6 Albumin 3.9 Globulin 4.0 Albumin/Globulin Ratio 1.0 Amylase Lipase 11 L Orders Category Date Time Status Saline Loc DIRECTED Care 08/10/19 14:[address] HEAD W/O CONTRAST [CT] Stat Exams 08/10/19 14:24 Completed AMYLASE [CHEM] Stat Lab 08/10/19 15:00 Completed CBC WITH ELECTRONIC DIFF [HEME] Stat Lab 08/10/19 15:00 Completed CK PROFILE [SP CHEM] Stat Lab 08/10/19 15:00 Completed COMPREHENSIVE METABOLIC PANEL [CHEM] Stat Lab 08/10/19 15:00 Completed LIPASE [CHEM] Stat Lab 08/10/19 15:00 Completed TROPONIN T Stat Lab 08/10/19 15:[address] W/POSS RFLX CULT [URINALYSIS] Stat Lab 08/10/19 17:10 Received 0.9% Sodium Chloride Inj [Ns] 1,000 ml Med 08/10/19 14:43 Discontinued IV 999 mls/hr EKG [EKG] Stat Ther 08/10/19 14:42 Draft Result Diagrams: 08/10/19 15:00 08/10/19 15:00 - EKG 1 Time of EKG reading by physician:: 15:40 EKG Read and Signed by:: Juany Gloria EKG Interpretation (*Must complete 3 of following elements*): Abnormal Rate: 54 Rhythm: sinus bradycardia [place]: normal [place] Interval: normal Comments: otherwise normal ECG - CT/MRI 1 CT Study: Head Impression: See EMR Report ( EXAM: CT HEAD W/O CONTRAST HISTORY: fall TECHNIQUE: CT head without contrast COMPARISON: None. FINDINGS: No parenchymal hemorrhage. No epidural or subdural hematoma. No subarachnoid hemorrhage. No mass identified on this noncontrasted exam. No hydrocephalus. No skull fracture. IMPRESSION: No intracranial hemorrhage. This exam was performed using automated exposure control, adjustment of mA or kV according to patient size, and/or use of iterative reconstruction technique. Electronically signed by Swapnil Barney 08/10/2019 3:27 PM 08/10/19 1527 Interpreting Physician: Swapnil Barney MD Dictated Date/Time: 08/10/19 1526 cc: Juany Gloria MD; None,PCP) Departure - Departure Date of Disposition Decision: 08/10/19 Time of Disposition Decision: 17:23 DIAGNOSIS: Hypotension Qualifiers: Hypotension type: unspecified hypotension type Qualified Code(s): I95.9 - Hypotension, unspecified Disposition: ADMITTED INPATIENT 09 Certified Medical Emergency: Emergent Condition: Good Referrals and Follow-Ups: None,PCP [Primary Care Provider] - - Critical Care Note This patient required my direct & personal management of CC.: No Attestation - Physician/ ALEXSANDRA Attestation Patient care was provided by Advanced Practice Provider:: No The physician spent face to face time with patient:: Yes Advanced Practice Provider documentation review:: Supervising physician onsite and consulted in the evaluation and care of this patient. The physician did have a face to face encounter with the patient. This chart was documented by the indicated scribe, (Christelle Sosa Scribe) and accurately reflects the services I performed and decisions made by me, Juany Gloria MD, as attested by the provider's signature.
[2019-08-10 17:38] LABS: BILIRUBIN URINE NEGATIVE (NEGATIVE); BLOOD URINE NEGATIVE (NEGATIVE); CLARITY CLEAR (CLEAR); COLOR YELLOW; GLUCOSE URINE NEGATIVE (NEGATIVE); KETONE URINE NEGATIVE (NEGATIVE); LEUKOCYTES URINE NEGATIVE (NEGATIVE); NITRITE URINE NEGATIVE (NEGATIVE); PROTEIN URINE NEGATIVE (NEGATIVE); UROBILINOGEN URINE NORMAL
[2019-08-10] MEDS ORDERED: DILAUDID IV ONE (17:42)
[2019-08-10] MEDS ORDERED: DILAUDID ONE (17:47)
[2019-08-10 17:50] LABS: URINE SOURCE CLEAN CATCH
[2019-08-10 17:51] LABS: URINE BACTERIA 3+ /HFP; URINE CAST NONE SEEN /LPF; URINE CRYSTAL NONE SEEN /HPF; URINE EPITHELIAL CELLS >10 /HPF (<10); URINE RBC <10 /HPF (<10); URINE WBC <10 /HPF (<10); URINE YEAST NONE SEEN /HPF
[2019-08-10] MEDS: ZOFRAN IV ONE ×2 (17:53→20:32)
[2019-08-10] MEDS ORDERED: ZOFRAN IV PRN (18:23)
[2019-08-10] MEDS ORDERED: DILAUDID IM PRN (18:23)
[2019-08-10] MEDS ORDERED: NS 1,000 ML ONE (20:29)
[2019-08-10] MEDS ORDERED: NS 1,000 ML IV SCH (21:00)
[2019-08-10] MEDS: DEMEROL IV PRN (22:26)
[2019-08-10] MEDS: NS 1,000 ML IV SCH (22:26)
[2019-08-11] MEDS ORDERED: FLU VACCINE IM ONE (01:21)
[2019-08-11] MEDS ORDERED: PNEUMOVAX 23 IM ONE (01:22)
[2019-08-11] MEDS: ZOFRAN IV PRN ×6 (02:43→23:55)
[2019-08-11] MEDS: DEMEROL IV PRN ×6 (02:43→23:54)
[2019-08-11] MEDS ORDERED: SODIUM CHLORIDE 0.9% 10 ML ONE (05:18)
[2019-08-11] MEDS ORDERED: CORTROSYN IV ONE (06:00)
[2019-08-11] MEDS: NS 1,000 ML IV SCH ×2 (06:45→17:16)
[2019-08-11] MEDS ORDERED: ESTRACE PO SCH (09:00)
[2019-08-11] MEDS ORDERED: CORTEF PO SCH (09:00)
[2019-08-11] MEDS ORDERED: COZAAR PO SCH (09:00)
[2019-08-11] MEDS: ASPIRIN PO SCH (09:16)
[2019-08-11] MEDS: SYNTHROID PO SCH (09:16)
[2019-08-11] MEDS: ZANAFLEX PO PRN ×2 (09:22→21:50)
--- NOTE | 2019-08-11 09:25 | HISTORY AND PHYSICAL ---
PRIMARY CARE PHYSICIAN: Dr. Miguel Angel Roberts. BASIC COMBATANT SWIMMER: Dr. De Luna. 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 Vail, school psychology professor, in [place], [place] next week. CHIEF COMPLAINT: Fall, hitting head, with nausea, vomiting, headache, and dizziness. HISTORY OF PRESENTING ILLNESS: This is a 49-year-old female who presents to [facility] ER with complaints that she had fallen 2 days ago, and hit her head on the left side. Immediately began having nausea, vomiting, headache, and dizziness. States that she has been having multiple falls recently. She is followed by Cardiology, Dr. De Luna. She also states that she has an Endocrinology appointment with Dr. Vail in [place], [place]. She was in the hospital back in December, and was found to have persistent hypotension secondary to severe adrenal insufficiency with both her cosyntropin test as well as her HCT 8 showed low numbers, consistent with a probable secondary cause of the adrenal insufficiency. We did a CT of her head that showed no intracranial hemorrhage. Her blood pressure was found to be low. On arrival, she was 95/67. She did drop as low as 85/57, was given fluid resuscitation, and came up. This morning is at 97/57. States she still continues to have blurred vision, dizziness that is worse when she tries to stand up or walk, so she was admitted for further evaluation and treatment. 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 PAST SURGICAL HISTORY: Appendectomy, cholecystectomy, heart stent placement, hysterectomy, and a tonsillectomy. FAMILY HISTORY: Reviewed and noncontributory. SOCIAL HISTORY: She currently lives alone. Denies any tobacco, alcohol, or illicit drug use. ALLERGIES: Imitrex, Ketoralac, morphine, onion, tramadol, and migraine medications. HOME MEDICATIONS: We will hold her Coreg 6.25 mg p.o. b.i.d., clonidine 0.1 mg p.o. p.r.n., and losartan 25 mg p.o. daily. Will continue her aspirin 325 mg p.o. daily, atorvastatin 80 mg p.o. at bedtime, clonazepam 0.5 mg p.o. b.i.d. p.r.n., estradiol 1 mg p.o. daily, hydrocortisone 10 mg p.o. b.i.d., levothyroxine 25 mcg p.o. daily, omeprazole 20 mg p.o. daily, Phenergan 25 mg p.o. p.r.n., sertraline 100 mg p.o. daily, Zanaflex 4 mg p.o. b.i.d. p.r.n. REVIEW OF SYSTEMS: She denied any fever, chills. She is positive for blurred vision, dizziness, multiple falls, headache. Denied any chest pain, coughing, shortness of breath, abdominal pain, constipation, diarrhea, burning or hurting with urination. PHYSICAL EXAMINATION: VITAL SIGNS: On arrival, she had a temperature of 97.6 degrees, pulse 67, respirations 14, blood pressure 95/67. She did drop her blood pressure while in the emergency room down to 85/57 after fluid resuscitation. She is currently at 97/57. GENERAL: This is a 49-year-old female who is sitting up in the bed, eating breakfast. Answers questions appropriately. HEENT: Normocephalic, atraumatic. Normal ENT inspection. Oropharynx and nares are clear. Eyes: Pupils are equal, round, reactive to light and accommodation. Extraocular movements are intact. NECK: Normal inspection. Normal range of motion. LUNGS: Clear to auscultation bilaterally with equal lung expansion and chest wall movement. HEART: Regular rate and rhythm. No murmurs, rubs, or gallops. ABDOMEN: Soft, nontender, nondistended. Bowel sounds are present x4 quadrants. MUSCULOSKELETAL: She has 5/5 strength x4 extremities. NEUROLOGICAL: The cranial nerves II through XII are grossly intact. ASSESSMENT: 1. Multiple falls. 2. Hypotension. 3. Headaches with dizziness. 4. Adrenal insufficiency. 5. Dysautonomia. PLAN: She will be admitted to the medical unit. Placed on a regular diet. We are going to check a Cortrosyn stim test, urine culture. She is on normal saline at 100 mL an hour. She was given Cortrosyn 0.25 mg IV x1, Demerol 25 mg IV every 4 hours p.r.n., and we will recheck CBC and BMP in the a.m. Further orders after seen by attending. Dictated by ACE Rodney for George Berg MD cc: ACE Rodney MD Malcolm R. Hendricks, MD
--- NOTE | 2019-08-11 18:07 | PROGRESS NOTE ---
DATE: 08/11/2019 SUBJECTIVE: Patient has no major complaints. She came in with recurrent falls. She has a history of adrenal insufficiency. She is on hydrocortisone. She came in hypotensive with frequent falls. Blood pressure is 80s to 90s. Heart rate was 60s to 70s. OBJECTIVE: Her physical exam is unremarkable. ASSESSMENT AND PLAN: Dr. Nguyen evaluated the patient, and felt she has secondary adrenal insufficiency, but she is not a candidate for MRI because she has an implantable loop recorder. I am not quite sure that is still required at this point, but we will discuss with Dr. De Luna tomorrow. In any case, we will repeat her CT tomorrow. Get a PT evaluation. I may bump up her hydrocortisone just for a couple days just to kind of give her a boost in case this is a little bit of a crisis. We will see how she does. Hopefully, discharge in the next 24 hours. cc: George Berg MD
--- NOTE | 2019-08-11 20:44 | Diag Imaging Result Doc PS360 ---
CT HEAD W/CONTRAST - 08/11/2019 INDICATION: dizziness TECHNIQUE: COMPARISON: Head CT yesterday FINDINGS: The ventricles and sulci are normal in size and contour. No intracranial mass or hemorrhage. The skull is intact. The sinuses mastoids and middle ears are clear. There is no area of abnormal contrast enhancement. The vessels appear grossly patent. IMPRESSION: Negative exam. This exam was performed using automated exposure control, adjustment of mA or kV according to patient size, and/or use of iterative reconstruction technique Electronically signed by Ifeanyi Cyr 08/11/2019 8:42 PM
[2019-08-11] MEDS: PHENERGAN PO PRN (21:50)
[2019-08-11] MEDS: LIPITOR PO SCH (21:50)
[2019-08-11] MEDS: KLONOPIN PO PRN (21:50)
[2019-08-11] MEDS: SOLU-CORTEF IV SCH (21:50)
[2019-08-12] MEDS: DEMEROL IV PRN ×5 (04:12→20:27)
[2019-08-12] MEDS: ZOFRAN IV PRN ×2 (04:12→20:42)
[2019-08-12] MEDS: NS 1,000 ML IV SCH ×2 (05:29→15:35)
[2019-08-12] MEDS: PRILOSEC PO SCH ×2 (05:29→05:59)
[2019-08-12] MEDS: SYNTHROID PO SCH ×2 (05:29→05:59)
[2019-08-12 06:41] LABS: BASO# 0.01 X1000 (0.0-0.2); BASO% 0.2 % (0.0-0.8); EOS# 0.01 X1000 (0.0-0.7); EOS% 0.2 % (0.0-10.0); HEMATOCRIT 31.4 % (37.0-47.0); HEMOGLOBIN 9.4 g/dL (12.0-16.0); IMM GRAN# 0.01 X1000 (0.0-0.04); IMM GRAN% 0.2 % (0.0-0.5); LYMPH# 1.09 X1000 (1.2-3.4); LYMPH% 18.5 % (20.5-51.1); MCH 27.5 PG (27-31); MCHC 29.9 g/dL (33-37); MCV 91.8 FL (81-99); MONO# 0.25 X1000 (0.11-0.59); MONO% 4.3 % (1.7-9.3); MPV 12.3 FL (7.4-10.4); NEUT# 4.51 X1000 (1.4-6.5); NEUT% 76.6 % (42.2-75.2); PLT 186 X1000 (130-400); RBC 3.42 XMIL (4.2-5.4); RDW 14.1 % (11.5-14.5); WBC 5.88 X1000 (4.8-10.8)
[2019-08-12 06:48] LABS: AGAP 12; BUN 7 mg/dL (8-22); CALCIUM 8.9 mg/dL (8.8-10.2); CHLORIDE 111 mmol/L (98-107); COSMO 282; CREATININE 0.9 mg/dL (0.5-0.9); ESTIMATED GFR > 60; GLUCOSE 153 mg/dL (70-104); POTASSIUM 4.1 mmol/L (3.5-5.1); SODIUM 141 mmol/L (136-145); TCO2 18 mmol/L (25-35)
[2019-08-12] MEDS: ZOLOFT PO SCH (08:47)
[2019-08-12] MEDS: ZANAFLEX PO PRN ×2 (08:47→20:32)
[2019-08-12] MEDS: ASPIRIN PO SCH (08:47)
[2019-08-12] MEDS: SOLU-CORTEF IV SCH ×2 (08:47→20:33)
[2019-08-12] MEDS: PHENERGAN PO PRN ×2 (08:47→16:37)
[2019-08-12] MEDS: ANTIVERT PO SCH ×3 (08:47→16:37)
--- NOTE | 2019-08-12 11:14 | PROGRESS NOTE ---
DATE: 08/12/2019 SUBJECTIVE: The patient still feels weak, dizzy. OBJECTIVE: Vital signs: Blood pressure is 116/71, heart rate of 72, respiratory rate 18, temperature 97.4 degrees, 100% on room air. Cardiovascular: Regular rate and rhythm. Pulmonary: Bilateral breath sounds clear to auscultation. GI: Was soft, nontender, nondistended. Bowel sounds are positive. LABORATORIES: White count 5, hemoglobin and hematocrit 9 and 31, platelets 186,000. Basic was normal. PROBLEM LIST: 1. Adrenal insufficiency with a brief crisis. She seems to be doing better. We did bump up her IV hydrocortisone. I am going to titrate down a little bit on it now. 2. Recurrent falls and weakness, possibly related to renal insufficiency dysautonomia. I am not sure if it is just perhaps her hormones have not been completely regulated. We may need to consider fludrocortisone on her. I may give her a dose of that today. She is usually just on hydrocortisone and we will see how she does. We will be very cautious in starting and monitoring her sodium and blood pressure affects. DISPOSITION: Physical therapy was concerned about her ability to ambulate on her own and evaluating to see if there is any rehab options. She is a Medicare with [employer], so we are going to look into that currently. cc: George Berg MD
[2019-08-12] MEDS: FLORINEF PO SCH (11:39)
[2019-08-12] MEDS: KLONOPIN PO PRN ×2 (12:39→20:32)
[2019-08-12] MEDS: LIPITOR PO SCH (20:32)
[2019-08-13] MEDS: DEMEROL IV PRN ×6 (00:15→20:51)
[2019-08-13] MEDS: PHENERGAN PO PRN ×2 (00:15→08:35)
[2019-08-13] MEDS: ZOFRAN IV PRN ×5 (00:15→20:51)
[2019-08-13] MEDS: NS 1,000 ML IV SCH ×3 (01:08→20:50)
[2019-08-13] MEDS: LOVENOX SUBQ SCH (06:17)
[2019-08-13] MEDS: SYNTHROID PO SCH (06:17)
[2019-08-13] MEDS: PRILOSEC PO SCH (06:17)
[2019-08-13 06:33] LABS: AGAP 11; BUN 7 mg/dL (8-22); CALCIUM 8.8 mg/dL (8.8-10.2); CHLORIDE 110 mmol/L (98-107); COSMO 281; CREATININE 0.8 mg/dL (0.5-0.9); ESTIMATED GFR > 60; GLUCOSE 94 mg/dL (70-104); POTASSIUM 3.5 mmol/L (3.5-5.1); SODIUM 142 mmol/L (136-145); TCO2 21 mmol/L (25-35)
[2019-08-13] MEDS: ZOLOFT PO SCH (08:35)
[2019-08-13] MEDS: ASPIRIN PO SCH (08:35)
[2019-08-13] MEDS: FLORINEF PO SCH (08:35)
[2019-08-13] MEDS: ZANAFLEX PO PRN ×2 (08:35→20:52)
[2019-08-13] MEDS: ANTIVERT PO SCH ×3 (08:36→16:49)
[2019-08-13] MEDS: SOLU-CORTEF IV SCH ×2 (08:36→20:51)
--- NOTE | 2019-08-13 09:13 | PROGRESS NOTE ---
DATE: 08/13/2019 SUBJECTIVE: Patient continues to have generalized weakness and does not feel well. OBJECTIVE: Vital Signs: Temperature 97.7 degrees, pulse 82 per minute, respiratory rate 20 per minute, blood pressure 159/95, pulse oximetry 100% on room air. General: Patient is alert and oriented x3. She does not appear to be in any acute distress. Cardiovascular System: First and second heart sounds are audible without any murmurs or gallops. Respiratory System: Bilateral lung air entry is good without any rales or rhonchi. Gastrointestinal: Abdomen is soft and nondistended. Normal bowel sounds are present. Musculoskeletal System: No deformities are present. DIAGNOSTIC DATA: There is no CBC done, although she did have some drop in hemoglobin and hematocrit, and anemia with hemoglobin of 9.4 and hematocrit 31.4 on 08/12/2019. This morning we have a basic metabolic panel that is nondiagnostic. IMPRESSION: Recurrent falls in this 49-year-old lady who has adrenal insufficiency and dyslipidemia. PLAN: We will continue with the current medications including hydrocortisone and fludrocortisone along with levothyroxine. We will continue to give her IV fluid and monitor her anemia. I am going to repeat CBC and comprehensive metabolic panel, along with magnesium levels tomorrow. Plan is to provide her physical therapy so she can get better and be discharged home soon. cc: Comfort Solis MD
[2019-08-13] MEDS: KLONOPIN PO PRN ×2 (10:29→20:52)
[2019-08-13] MEDS: LIPITOR PO SCH (20:51)
[2019-08-14] MEDS: DEMEROL IV PRN ×6 (01:16→23:54)
[2019-08-14] MEDS: PHENERGAN PO PRN ×3 (01:17→22:57)
[2019-08-14] MEDS: ZOFRAN IV PRN ×6 (01:17→23:54)
[2019-08-14] MEDS: LOVENOX SUBQ SCH (05:53)
[2019-08-14] MEDS: PRILOSEC PO SCH ×2 (05:54→06:31)
[2019-08-14] MEDS: SYNTHROID PO SCH ×2 (05:54→06:31)
[2019-08-14 06:16] LABS: BASO# 0.01 X1000 (0.0-0.2); BASO% 0.1 % (0.0-0.8); EOS# 0.01 X1000 (0.0-0.7); EOS% 0.1 % (0.0-10.0); HEMATOCRIT 30.4 % (37.0-47.0); HEMOGLOBIN 9.2 g/dL (12.0-16.0); IMM GRAN# 0.04 X1000 (0.0-0.04); IMM GRAN% 0.5 % (0.0-0.5); LYMPH# 1.52 X1000 (1.2-3.4); LYMPH% 19.1 % (20.5-51.1); MCHC 30.3 g/dL (33-37); MCV 92.4 FL (81-99); MONO% 3.8 % (1.7-9.3); MPV 12.2 FL (7.4-10.4); NEUT# 6.06 X1000 (1.4-6.5); NEUT% 76.4 % (42.2-75.2); PLT 184 X1000 (130-400); RBC 3.29 XMIL (4.2-5.4); RDW 14.5 % (11.5-14.5); WBC 7.94 X1000 (4.8-10.8)
[2019-08-14 06:44] LABS: AGAP 16; ALBUMIN 3.6 g/dL (3.5-5.0); ALKALINE PHOSPHATASE 159 U/L (32-104); BUN 8 mg/dL (8-22); CALCIUM 8.5 mg/dL (8.8-10.2); CHLORIDE 107 mmol/L (98-107); COSMO 283; CREATININE 0.7 mg/dL (0.5-0.9); ESTIMATED GFR > 60; GLUCOSE 156 mg/dL (70-104); GOT 12 U/L (10-30); GPT 12 U/L (10-36); MAGNESIUM 1.5 mg/dL (1.5-2.7); POTASSIUM 3.3 mmol/L (3.5-5.1); SODIUM 141 mmol/L (136-145); TCO2 18 mmol/L (25-35); TOTAL PROTEIN 6.9 g/dL (6.3-8.3)
[2019-08-14] MEDS ORDERED: KLOR-CON PO ONE (07:24)
[2019-08-14 10:45] LABS: OCCULT BLOOD 1 NEGATIVE (NEGATIVE)
[2019-08-14] MEDS: SOLU-CORTEF IV SCH ×3 (11:06→23:20)
[2019-08-14] MEDS: FLORINEF PO SCH (11:07)
[2019-08-14] MEDS: ZOLOFT PO SCH (11:08)
[2019-08-14] MEDS: ASPIRIN PO SCH (11:08)
[2019-08-14] MEDS: ZANAFLEX PO PRN (11:08)
[2019-08-14] MEDS: ANTIVERT PO SCH ×3 (11:08→17:26)
[2019-08-14] MEDS: KLONOPIN PO PRN ×2 (11:09→19:45)
--- NOTE | 2019-08-14 13:10 | PROGRESS NOTE ---
DATE: 08/14/2019 SUBJECTIVE: Patient denies having any acute complaints this morning and feels somewhat better as compared to yesterday. OBJECTIVE: Vital Signs: Temperature 98.1 degrees, pulse 94 per minute, respiratory rate 18 per minute, blood pressure 167/92, pulse oximetry 98% on room air. General: Patient is alert and oriented x3. She does not appear to be in any acute distress. Cardiovascular System: First and second heart sounds are audible without any murmurs or gallops. Respiratory System: No respiratory distress noted. Bilateral lung air entry is good without any rales or rhonchi. Abdomen is soft and nondistended. Normal bowel sounds are present. Musculoskeletal System: No deformities are present. DIAGNOSTIC DATA: CBC shows WBC count 7.94, hemoglobin 9.2, hematocrit 30.4, and platelet count of 184,000. In comparison, her hemoglobin and hematocrit were 9.4 and 31.4 respectively 2 days ago, on 08/12/2019. Chemistry showed potassium level of 3.3 and glucose levels of 156. Rest of the comprehensive metabolic panel is nondiagnostic. IMPRESSION: Recurrent falls in this 49-year-old lady who has adrenal insufficiency and dyslipidemia, along with hypokalemia. PLAN: We will continue with current medications, including hydrocortisone and fludrocortisone orally. She will also continue with levothyroxine for her hypothyroidism. She does have anemia, but her stool is negative for Hemoccult. We are going to repeat CBC and BMP tomorrow morning. She will also continue with physical therapy and go home soon if she continues to get better. cc: Comfort Solis MD
[2019-08-14] MEDS ORDERED: COZAAR PO ONE (17:38)
[2019-08-14] MEDS: LIPITOR PO SCH ×2 (19:45→23:20)
[2019-08-14] MEDS: COREG PO SCH ×2 (19:45→23:19)
[2019-08-14] MEDS: NS 1,000 ML IV SCH ×2 (19:46→19:47)
[2019-08-15] MEDS: ZOFRAN IV PRN ×2 (03:49→10:58)
[2019-08-15] MEDS: NS 1,000 ML IV SCH (03:49)
[2019-08-15] MEDS: DEMEROL IV PRN ×4 (03:49→20:05)
[2019-08-15] MEDS: ZANAFLEX PO PRN ×3 (03:49→20:04)
[2019-08-15] MEDS: SYNTHROID PO SCH (06:06)
[2019-08-15] MEDS: LOVENOX SUBQ SCH (06:06)
[2019-08-15] MEDS: PRILOSEC PO SCH (06:06)
[2019-08-15 06:26] LABS: BASO# 0.02 X1000 (0.0-0.2); BASO% 0.2 % (0.0-0.8); EOS# 0.01 X1000 (0.0-0.7); EOS% 0.1 % (0.0-10.0); HEMATOCRIT 29.8 % (37.0-47.0); HEMOGLOBIN 8.9 g/dL (12.0-16.0); IMM GRAN# 0.06 X1000 (0.0-0.04); IMM GRAN% 0.7 % (0.0-0.5); LYMPH# 2.27 X1000 (1.2-3.4); LYMPH% 27.3 % (20.5-51.1); MCH 27.7 PG (27-31); MCHC 29.9 g/dL (33-37); MCV 92.8 FL (81-99); MONO# 0.51 X1000 (0.11-0.59); MONO% 6.1 % (1.7-9.3); MPV 12.1 FL (7.4-10.4); NEUT# 5.44 X1000 (1.4-6.5); NEUT% 65.6 % (42.2-75.2); PLT 208 X1000 (130-400); RBC 3.21 XMIL (4.2-5.4); RDW 14.6 % (11.5-14.5); WBC 8.31 X1000 (4.8-10.8)
[2019-08-15 06:33] LABS: AGAP 8; BUN 8 mg/dL (8-22); CALCIUM 8.5 mg/dL (8.8-10.2); CHLORIDE 113 mmol/L (98-107); COSMO 284; CREATININE 0.7 mg/dL (0.5-0.9); ESTIMATED GFR > 60; GLUCOSE 119 mg/dL (70-104); POTASSIUM 3.7 mmol/L (3.5-5.1); SODIUM 143 mmol/L (136-145); TCO2 22 mmol/L (25-35)
[2019-08-15] MEDS: ZOLOFT PO SCH (10:49)
[2019-08-15] MEDS: COREG PO SCH ×2 (10:49→20:01)
[2019-08-15] MEDS: SOLU-CORTEF IV SCH (10:49)
[2019-08-15] MEDS: ASPIRIN PO SCH (10:49)
[2019-08-15] MEDS: FLORINEF PO SCH (10:50)
[2019-08-15] MEDS: ANTIVERT PO SCH (10:50)
[2019-08-15] MEDS: COZAAR PO SCH (10:50)
--- NOTE | 2019-08-15 12:21 | PROGRESS NOTE ---
DATE: 08/15/2019 SUBJECTIVE: Patient is still feeling ill. She has lost IV access, but her vital signs are stable. OBJECTIVE: Vital Signs: Blood pressure 174/98, heart rate 76, respiratory rate 16, temperature 97.9 degrees, 100% on room air. Cardiovascular: Regular rate and rhythm. Pulmonary: Bilateral breath sounds clear to auscultation. Abdomen: Soft, nontender, nondistended. Bowel sounds are positive. Extremities: No clubbing or cyanosis. Lymphatic: No peripheral edema. Neurological: Nonfocal. LABORATORY DATA: White count is 8, hemoglobin and hematocrit 8 and 29, platelets 208,000. Electrolytes are stable, including potassium. PROBLEM LIST: Adrenal insufficiency. That seems to be getting better. If anything, her blood pressure is actually hypertensive, so I am going to just put her back down to her 10 b.i.d. of [facility] and we will follow her, see how she is doing despite. The patient's admonitions, I am not entirely sure she needs IV fluids and apparently she got volume overloaded. In any case, I think she is probably stable for rehab but I do not know if we have a bed. She has requested to consider transfer to [place] where her athletic gear custodian is. I will certainly see if we can accommodate that, although I think she is medically stable and we are really looking at trying to get her stabilized and get to rehab. I am not sure how she did with PT. We do not have any further notes since the one visit last week, so I doubt she has really gotten any better, but we are looking at rehab options for this patient. cc: George Berg MD
[2019-08-15] MEDS: KLONOPIN PO PRN ×2 (12:26→20:03)
[2019-08-15] MEDS: LIPITOR PO SCH (20:03)
[2019-08-15] MEDS ORDERED: CORTEF PO SCH (21:00)
[2019-08-16] MEDS: DEMEROL IV PRN ×2 (00:09→04:33)
[2019-08-16] MEDS: SYNTHROID PO SCH ×2 (05:21→08:40)
[2019-08-16] MEDS: LOVENOX SUBQ SCH (05:42)
[2019-08-16] MEDS: PRILOSEC PO SCH ×2 (05:43→08:40)
[2019-08-16] MEDS ORDERED: CATAPRES PO PRN (06:39)
[2019-08-16] MEDS: COREG PO SCH ×2 (08:49→20:13)
[2019-08-16] MEDS: CORTEF PO SCH ×2 (08:49→20:11)
[2019-08-16] MEDS: KLONOPIN PO PRN ×2 (08:50→23:19)
[2019-08-16] MEDS: ASPIRIN PO SCH (08:50)
[2019-08-16] MEDS: NORCO-10 PO PRN ×3 (08:50→20:12)
[2019-08-16] MEDS: PHENERGAN PO PRN ×2 (08:50→20:16)
[2019-08-16] MEDS: ZOLOFT PO SCH (08:50)
[2019-08-16] MEDS: COZAAR PO SCH (08:50)
--- NOTE | 2019-08-16 09:49 | Diag Imaging Result Doc PS360 ---
EXAM: SHOULDER-LEFT HISTORY: fall TECHNIQUE: Shoulder three views including an axillary Y-view COMPARISON: 10/10/2018 FINDINGS: No fracture. No dislocation. No separation at the acromioclavicular joint. IMPRESSION: No acute bony injury. Electronically signed by Swapnil Barney 08/16/2019 9:47 AM
--- NOTE | 2019-08-16 09:50 | Diag Imaging Result Doc PS360 ---
EXAM: XRAY HIP UNILATERAL LT HISTORY: fall TECHNIQUE: Left hip two views COMPARISON: 02/25/2019 FINDINGS: No fracture. No dislocation. Arthritis similar to the prior exam. IMPRESSION: No acute bony injury. Electronically signed by Swapnil Barney 08/16/2019 9:47 AM
[2019-08-16] MEDS: ZANAFLEX PO PRN (13:13)
--- NOTE | 2019-08-16 18:09 | Diag Imaging Result Doc PS360 ---
EXAM: CHEST-PORTABLE HISTORY: rehab placement TECHNIQUE: Chest single view COMPARISON: 06/24/2018 FINDINGS: Poor inspiratory effort. The heart is not enlarged. The vessels are not distended. There are no infiltrates. No effusion identified. IMPRESSION: Negative exam. Electronically signed by Swapnil Barney 08/16/2019 6:07 PM
--- NOTE | 2019-08-16 19:14 | PROGRESS NOTE ---
DATE: 08/16/2019 SUBJECTIVE: The patient notes that she is hurting all over. She feels terrible. Her left shoulder and left hip for hurting from recent fall. She would like to add Phenergan to her pain medication. PHYSICAL EXAMINATION: Vital Signs: Temperature 97.4 degrees, pulse 71, respiratory rate 18, BP 173/94. General: Patient is awake, alert. She appears in no distress. She easily pops up from lying position to a seated position on the bed. She does not have any outward visible signs of increased pain with this movement. HEENT: Normocephalic. Neck: Supple. Cardiovascular: Regular rate. Chest: Clear. Abdomen: Soft, nondistended. Extremities: Moves all extremities. ASSESSMENT: 1. Left shoulder and left hip pain. 2. Acute pain from recent fall. 3. Frequent falls. 4. Dizziness. 5. Hypertension. PLAN: We will continue patient in the hospital. Continue physical therapy. I did discuss with her that we need to stop her IV pain medication as IV pain medicine is only for short acute term, typically postop, not for chronic pain. We will slowly decrease her pain medicine over the next day or 2. She has been ambulating somewhat to the restroom and back, but she is requesting rehab. cc: Brayan Peraza MD
[2019-08-16] MEDS: LIPITOR PO SCH (20:13)
[2019-08-17] MEDS: ZANAFLEX PO PRN ×2 (00:14→11:32)
[2019-08-17] MEDS: NORCO-10 PO PRN ×3 (01:48→15:37)
[2019-08-17] MEDS: PHENERGAN PO PRN ×3 (01:49→15:37)
[2019-08-17] MEDS: SYNTHROID PO SCH (06:00)
[2019-08-17] MEDS: LOVENOX SUBQ SCH (06:00)
[2019-08-17 06:22] LABS: HEMATOCRIT 29.9 % (37.0-47.0); HEMOGLOBIN 8.7 g/dL (12.0-16.0); MCH 27.4 PG (27-31); MCHC 29.1 g/dL (33-37); MCV 94.3 FL (81-99); MPV 12.1 FL (7.4-10.4); RBC 3.17 XMIL (4.2-5.4); WBC 7.03 X1000 (4.8-10.8)
[2019-08-17 06:42] LABS: AGAP 11; BUN 13 mg/dL (8-22); CALCIUM 8.6 mg/dL (8.8-10.2); CHLORIDE 110 mmol/L (98-107); COSMO 292; CREATININE 0.6 mg/dL (0.5-0.9); ESTIMATED GFR > 60; GLUCOSE 122 mg/dL (70-104); POTASSIUM 3.9 mmol/L (3.5-5.1); SODIUM 146 mmol/L (136-145); TCO2 25 mmol/L (25-35)
[2019-08-17] MEDS: PRILOSEC PO SCH (06:56)
[2019-08-17] MEDS: ASPIRIN PO SCH (08:59)
[2019-08-17] MEDS: COREG PO SCH (08:59)
[2019-08-17] MEDS: ZOLOFT PO SCH (08:59)
[2019-08-17] MEDS: CORTEF PO SCH (09:00)
[2019-08-17] MEDS: COZAAR PO SCH (09:00)
[2019-08-17] MEDS: KLONOPIN PO PRN (11:32)
--- NOTE | 2019-08-17 14:07 | DISCHARGE SUMMARY ---
ADMISSION DATE: 08/10/2019 DISCHARGE DATE: 08/17/2019 DISCHARGE DIAGNOSES: 1. Left shoulder pain. 2. Left hip pain. 3. Frequent falls. 4. Adrenal insufficiency. 5. Hypertension. 6. Adult failure to thrive with generalized weakness. 7. Frequent falls. 8. Hypernatremia, improved. CONSULTATIONS: None. PROCEDURES: None. BRIEF HOSPITAL COURSE: The patient is a 49-year-old female who presented to the hospital after having several falls at home with generalized weakness. She had an adrenal stimulation test that was essentially normal. Her cortisol level was increased over her home dosing for stress dosing. This will be decreased back to her regular 10 mg twice daily at home on discharge. She was started on IV pain medications. We switched this over p.o. medicines and I begin weaning. The patient still states that she is fatigued, tired, and having difficulty ambulating without help. She states that she has dizziness and is having frequent falling. DISPOSITION: Thankfully, the patient is stable. She is awake and alert. She is in no distress. We are going to discharge her to rehab for further strengthening. We will restart her home medications. We will discharge her home with a tapering dose of [place] 10 mg. Discussed this is not to be used for normal pain but for severe pain only. Otherwise, no changes were made in her home medications as listed on her chart. Greater than 30 minutes were spent in total care. cc: Brayan Peraza MD
[2019-08-17 15:23] VITALS: BP 144/81
== END 2019-08-17 16:18 | DRG 644 ==
LOC: P.MEDSURG 14:22 → P.ED 14:22 → OBSVTOIN 19:46 → SUATTDRO 19:46 → P.MEDSURG 08-11 04:34
PROVIDERS: ATTEND Family Medicine

== ENCOUNTER 2020-02-09 10:45 | Inpatient (IN) ==
--- NOTE | 2020-02-09 11:11 | EKG Report ---
Test Performed on : 02/09/2020 10:25:52 AM Test Reason : CP Blood Pressure : / mmHG Vent. Rate : 068 BPM Atrial Rate : 068 BPM P-R Int : 122 ms QRS Dur : 082 ms QT Int : 454 ms P-R-T Axes : 010 042 -38 degrees QTc Int : 482 ms Normal sinus rhythm. T wave abnormality, consider inferior ischemia T wave abnormality, consider anterolateral ischemia Prolonged QT Abnormal ECG When compared with ECG of 17-OCT-2019 10:23, T wave inversion now evident in Anterior leads QT has lengthened Unconfirmed Result
[2020-02-09 11:19] LABS: BASO# 0.11 X1000 (0.0-0.2); BASO% 1.2 % (0.0-0.8); EOS# 0.24 X1000 (0.0-0.7); EOS% 2.7 % (0.0-10.0); HEMATOCRIT 38.1 % (37.0-47.0); HEMOGLOBIN 12.1 g/dL (12.0-16.0); LYMPH# 2.19 X1000 (1.2-3.4); LYMPH% 24.6 % (20.5-51.1); MCH 28.1 PG (27-31); MCHC 31.8 g/dL (33-37); MCV 88.4 FL (81-99); MONO# 0.55 X1000 (0.11-0.59); MONO% 6.2 % (1.7-9.3); MPV 12.6 FL (7.4-10.4); NEUT# 5.82 X1000 (1.4-6.5); NEUT% 65.3 % (42.2-75.2); PLT 204 X1000 (130-400); RBC 4.31 XMIL (4.2-5.4); WBC 8.91 X1000 (4.8-10.8)
--- NOTE | 2020-02-09 11:29 | Diag Imaging Result Doc PS360 ---
EXAM: CHEST-2 VIEWS HISTORY: CP TECHNIQUE: Two views COMPARISON: 11/24/2019 FINDINGS: The lungs are well expanded. The heart is not enlarged. The vessels are not distended. There are no infiltrates. No pleural effusions. IMPRESSION: No acute abnormality. Electronically signed by Swapnil Barney 02/09/2020 11:27 AM
[2020-02-09 11:30] LABS: INR 0.97
[2020-02-09 11:31] LABS: PTT 31.4 Seconds (22.3-41.8)
[2020-02-09 11:51] LABS: AGAP 17; ALB/GLOB RATIO 1.1; ALBUMIN 4.1 g/dL (3.5-5.0); ALKALINE PHOSPHATASE 171 U/L (32-104); BUN 7 mg/dL (8-22); CALCIUM 9.9 mg/dL (8.8-10.2); CHLORIDE 104 mmol/L (98-107); CK PROFILE 47 U/L (24-173); COSMO 282; CREATININE 0.8 mg/dL (0.5-0.9); ESTIMATED GFR > 60; GLUCOSE 108 mg/dL (70-104); GOT 18 U/L (10-30); GPT 14 U/L (10-36); SODIUM 142 mmol/L (136-145); TCO2 21 mmol/L (25-35); TOTAL BILIRUBIN 0.45 mg/dL (0.20-1.00); TOTAL PROTEIN 7.8 g/dL (6.3-8.3)
--- NOTE | 2020-02-09 12:26 | PROVIDER DOCUMENTATION ---
HPI-Chest Pain - General Chief Complaint: Shortness of Breath Stated Complaint: SOB, CHEST PAIN Time Seen by Provider: 02/09/20 11:15 Source: patient Allergies/Adverse Reactions: Patient Allergies Allergy/AdvReac Type Severity Reaction Status Date / Time sumatriptan [From Imitrex] Allergy Unknown Unknown Verified 10/17/19 12:18 ketorolac [From Toradol] Allergy RASH Verified 10/17/19 12:18 morphine Allergy FLUSHING Verified 10/17/19 12:18 onion Allergy ANAPHYLAXIS Verified 10/17/19 12:18 tramadol Allergy RASH Verified 10/17/19 12:18 migraine medications Allergy Unknown Unknown Uncoded 10/17/19 12:18 Home Medications: Home Medication List Medication Instructions Recorded Confirmed Last Taken Type Estradiol 1 mg PO DAILY 01/07/18 10/17/19 12/09/18 07:00 History Omeprazole [Prilosec] 20 mg PO DAILY@0700 01/07/18 10/17/19 12/09/18 07:00 History Carvedilol [Coreg] 6.25 mg PO BID #60 tab 02/05/18 10/17/19 12/09/18 07:00 Rx Aspirin 325 mg PO DAILY 12/10/18 10/17/19 10/17/19 History Atorvastatin Calcium [Lipitor] 80 mg PO QHS 12/10/18 10/17/19 12/08/18 21:00 History Sertraline HCl [Zoloft] 100 mg PO DAILY 12/10/18 10/17/19 12/09/18 07:00 History Hydrocortisone [Cortef] 10 mg PO BID #60 tab 12/13/18 10/17/19 Unknown Rx Clonidine HCl 0.1 mg PO PRN PRN 08/10/19 10/17/19 Unknown History Levothyroxine Sodium 25 mcg PO DAILY 08/10/19 10/17/19 Unknown History Losartan [Cozaar] 100 mg PO DAILY 08/10/19 10/17/19 Unknown History Promethazine [Phenergan] 25 mg PO PRN PRN 08/10/19 10/17/19 Unknown History Tizanidine [Zanaflex] 4 mg PO BID PRN 08/10/19 10/17/19 Unknown History Clonazepam 0.5 mg PO BID PRN #15 tab 08/17/19 10/17/19 Unknown Rx Cyclobenzaprine [Flexeril] 10 mg PO TID PRN #15 tab 12/15/19 Unknown Rx Lidocaine [Lidoderm] 1 ea TOPICAL 2-4XDAY PRN PRN #10 12/15/19 Unknown Rx adh..patch - History of Present Illness-CP Nature of Presenting Problem: [id number] presents to the ER with c/o chest pain onset on . with left arm radiation and SOB. She called her PCP who told her to come to ER but she was afraid of COVID. She reports the pain got better but is still having pressure and tingling in the left arm. She reports dyspnea with exertion, inability to lay flat, difficulty talking without losing her breath. She has a history of NV in 2009 with 1 stent, small vessel disease, CHF, arelis's disease, and HTN. Location: reports: central Chest Pain Radiation: reports: arms (left) Quality of Pain: reports: pressure, other (tingling to left arm) Severity in ED: moderate Onset/Duration: 3 days ago Associated Symptoms: reports: shortness of breath. denies: nausea, vomiting Review of Systems - Adult - REVIEW OF SYSTEMS - ADULT Constitutional: reports: no symptoms reported Eyes: reports: no symptoms reported Ears, Nose, Mouth & Throat: reports: no symptoms reported Cardiovascular: reports: see HPI, chest pain, orthopnea, palpitations Respiratory: reports: see HPI, shortness of breath Gastrointestinal: reports: no symptoms reported. denies: nausea Genitourinary: reports: no symptoms reported Musculoskeletal: reports: no symptoms reported Integumentary: reports: no symptoms reported Neurological: reports: no symptoms reported Psychiatric: reports: no symptoms reported Endocrine: reports: no symptoms reported Hematologic/Lymphatic: reports: no symptoms reported Allergic/Immunologic: reports: no symptoms reported All Other Systems: Reviewed and Negative Past History - Adult - PAST MEDICAL HISTORY-ADULT Review of Records: reports: Old Records Reviewed, Nursing Assessment Review, Medications Reviewed, Social history reviewed & non-contributory. Major Childhood Illnesses: reports: denies history Cardiovascular: reports: CAD, CHF, HTN, NV Respiratory: reports: denies history Gastrointestinal: reports: denies history Obstetrical/Gynecological: reports: other (cervical cancer) Genitourinary: reports: denies history Musculoskeletal: reports: chronic pain Neurological: reports: other (dysautomia) Psychiatric: reports: denies history Endocrine/Immune: reports: adrenal insufficiency Other Conditions: reports: other (adrenal gland deficiency; aneurysm of optic nerve) - PRIOR SURGERIES/PROCEDURES Surgical/Procedure History: reports: appendectomy, cholecystectomy, cardiac stent, hysterectomy, tonsillectomy, other (loop monitor) - IMMUNIZATION STATUS Childhood Immunizations: See Nurse Assessment Flu Vaccine: See Nurse Assessment - FAMILY HISTORY Family History: reviewed, not pertinent - SOCIAL HISTORY Smoking: denies Substance Use: denies Living Situation: family Physical Exam-General - PHYSICAL EXAM-ADULT Initial Vital Signs Reviewed: Yes - CONSTITUTIONAL General Appearance: alert, mild distress - EYES Eyes: PERRL/EOMI, pink conjunctivae - HEAD, EARS, NOSE, MOUTH & THROAT HENMT: normocephalic/atraumatic, moist mucous membranes, normal ENT inspection, TMs normal - NECK Neck: full range of motion, supple - RESPIRATORY Respiratory: chest non-tender, lungs clear, normal breath sounds. negative: no respiratory distress (dyspnea with exertion), respiratory distress - CARDIOVASCULAR Cardiovascular: normal peripheral pulses, regular rate, rhythm, no edema - GASTROINTESTINAL (ABDOMEN) Abdominal Exam: normal bowel sounds, non tender, soft - MUSCULOSKELETAL Extremity: normal range of motion, normal gait - SKIN Integumentary: normal color, warm/dry - NEUROLOGIC Neurologic: grossly normal - PSYCHIATRIC Psych/Mental Status: normal mood/affect - HEART Score HEART Score: History: Moderately Suspicious HEART Score: ECG: Significant ST-Deviation (Prolonged QT) HEART Score: Age: 45-65 Years HEART Score: Risk Factors for Atherosclerotic Disease: > or = 3 Risk Factors or History of Atherosclerotic Disease HEART Score: Troponin: < or = Normal Limit Total HEART Score:: 6 Progress - PLAN OF CARE/RESULTS Progress/Plan/Lab Results: Vital Signs - 8 hr 02/09/20 11:00 Temperature 98.5 F Pulse Rate 71 Respiratory Rate 15 Blood Pressure 144/93 O2 Sat by Pulse Oximetry 99 Laboratory Results - last 24 hr 02/09/20 02/09/20 02/09/20 10:53 10:53 10:53 WBC RBC Hgb Hct MCV MCH MCHC RDW Std Deviation Plt Count MPV Immature Gran % (Auto) Neut % (Auto) Lymph % (Auto) [place] % (Auto) Eos % (Auto) Baso % (Auto) Immature Gran # (Auto) Neut # (Auto) Lymph # (Auto) [place] # (Auto) Eos # (Auto) Baso # (Auto) PT INR PTT (Actin FS) Sodium 142 Potassium 4.0 Chloride 104 Carbon Dioxide 21 L Anion Gap 17 BUN 7 L Creatinine 0.8 Estimated GFR/1.73 m2 > 60 BUN/Creatinine Ratio 9 Glucose 108 H Calculated Osmolality 282 Calcium 9.9 Total Bilirubin 0.45 AST 18 ALT 14 Alkaline Phosphatase 171 H Creatine Kinase 47 Troponin T High Sens 49 H Nat-U-Lynggmwxupu Pept 1125 H Total Protein 7.8 Albumin 4.1 Globulin 3.7 Albumin/Globulin Ratio 1.1 02/09/20 02/09/20 10:53 10:53 WBC 8.91 RBC 4.31 Hgb 12.1 Hct 38.1 MCV 88.4 MCH 28.1 MCHC 31.8 L RDW Std Deviation 14.0 Plt Count 204 MPV 12.6 H Immature Gran % (Auto) 0.0 Neut % (Auto) 65.3 Lymph % (Auto) 24.6 [place] % (Auto) 6.2 Eos % (Auto) 2.7 Baso % (Auto) 1.2 H Immature Gran # (Auto) 0.00 Neut # (Auto) 5.82 Lymph # (Auto) 2.19 [place] # (Auto) 0.55 Eos # (Auto) 0.24 Baso # (Auto) 0.11 PT 13.0 INR 0.97 PTT (Actin FS) 31.4 Sodium Potassium Chloride Carbon Dioxide Anion Gap BUN Creatinine Estimated GFR/1.73 m2 BUN/Creatinine Ratio Glucose Calculated Osmolality Calcium Total Bilirubin AST ALT Alkaline Phosphatase Creatine Kinase Troponin T High Sens [id number] Pept Total Protein Albumin Globulin Albumin/Globulin Ratio Orders Category Date Time Status Cardiac Monitoring DIRECTED Care 02/09/20 11:06 Active Oxygen Therapy- ED Nursing DIRECTED Care 02/09/20 11:06 Active Saline Loc NOW Care 02/09/20 11:06 Active CHEST-2 VIEWS [RAD] Stat Exams 02/09/20 11:06 Completed CBC WITH ELECTRONIC DIFF [HEME] Stat Lab 02/09/20 10:53 Completed CK PROFILE [SP CHEM] Stat Lab 02/09/20 10:53 Completed COMPREHENSIVE METABOLIC PANEL [CHEM] Stat Lab 02/09/20 10:53 Completed PRO B-NATRIURETIC PEPTIDE Stat Lab 02/09/20 10:53 Completed PROTIME WITH INR [COAG] Stat Lab 02/09/20 10:53 Completed PTT [COAG] Stat Lab 02/09/20 10:53 Completed TROPONIN T HIGH SENSITIVITY Stat Lab 02/09/20 10:53 Completed CP/SOB/Palp >45 yrs of Age Stat Oth 02/09/20 11:06 Ordered EKG [EKG] Stat Ther 02/09/20 11:06 Draft Result Diagrams: 02/09/20 10:53 02/09/20 10:53 - EKG 1 Time of EKG reading by physician:: 10:25 EKG Read and Signed by:: Christopher Santos EKG Interpretation (*Must complete 3 of following elements*): Abnormal Rate: 68 Rhythm: NSR Wells: normal QRS: other (prolonged QT) ST Wave: depressed (flipped T-waves in V2, V3, V4) Prior EKG Comparison: changes noted - XRAY 1 XRAY Study: Chest Impression: See EMR Report ( FINDINGS: The lungs are well expanded. The heart is not enlarged. The vessels are not distended. There are no infiltrates. No pleural effusions. IMPRESSION: No acute abnormality.) - CONSULTS/PCP/HOSPITALIST Notification #1 *Consult/PCP/Hospitalist*: ACE Zapata Time Discussed: 12:35 Reason/Comments: CHF exacerbation, CP Consult Disposition: Admit #2 Consult: [facility] Time Discussed: 12:35 Reason/Comments: CHF exacerbation, CP, EKG interpretation Consult Disposition: other (consulted) Departure - Departure Date of Disposition Decision: 02/09/20 Time of Disposition Decision: 12:36 DIAGNOSIS: Chest pain in adult, CHF (congestive heart failure) Disposition: ADMITTED INPATIENT 09 Certified Medical Emergency: Emergent Condition: Critical Additional Instructions: ED Follow Up Instructions: You have been treated by a care provider in the Emergency Department. These instructions are being provided to you so you can have an understanding of how to care for yourself upon discharge. Upon discharge from the Emergency Department, you are responsible for making arrangements for follow-up care by a physician of your choice. Take all prescribed medications as directed. Return to the Emergency Department immediately for any new or worsening symptoms. You may call the Physician Referral phone number at [phone] to obtain a l ist of Physicians who are taking new patients. Referrals and Follow-Ups: Miguel Angel Roberts MD [Primary Care Provider] - - Critical Care Note This patient required my direct & personal management of CC.: No Attestation - Physician/ ALEXSANDRA Attestation Patient care was provided by Advanced Practice Provider:: Yes Advanced Practice Provider:: [place] Advanced Practice Provider documentation review:: The Mid-level provider documentation, treatment plan and medical decision making was reviewed by the physician who agrees with all treatment and medical decision making by the P. The physician spent face to face time with patient:: No Advanced Practice Provider documentation review:: Supervising physician onsite and consulted in the evaluation and care of this patient. The physician did not have a face to face encounter with the patient.
[2020-02-09] MEDS ORDERED: DILAUDID IV PRN (13:47)
[2020-02-09] MEDS ORDERED: TYLENOL PO PRN (13:51)
[2020-02-09] MEDS ORDERED: NITROGLYCERIN SL PRN (13:51)
[2020-02-09] MEDS ORDERED: LOVENOX SUBQ SCH (14:00)
[2020-02-09] MEDS: ZOFRAN IV PRN ×2 (15:05→21:56)
--- NOTE | 2020-02-09 15:14 | HISTORY AND PHYSICAL ---
PRIMARY CARE PROVIDER: Dr. Miguel Angel Roberts. PRIMARY CLINICAL ASSESSMENT MANAGER: Dr. De Luna. PRIMARY EXERCISE SCIENTIST: Dr. Vail in [place], [place]. CHIEF COMPLAINT: Chest pressure and shortness of breath. HISTORY OF PRESENT ILLNESS: Ms. Marylu Barney is a 49-year-old female with a medical history of coronary artery disease with a history of a GA in 2009 where she received a stent. She also had a loop recorder placed in 2014, history of GERD. States that Thursday or actually Thursday she started having some shortness of breath to the point she could not lie flat to sleep. She has noticed increased swelling in the lower extremities and she called her primary up Thursday. She had a history of pneumonia in October. However, this time she denies dry cough. She denies productive cough. Denies fever but has this chest pressure and it radiates into the back of the neck, the back of the head and down the left arm. Left arm started having some numbness and tingling. It was recommended by her physician to go to the emergency department or another location for a chest x-ray to evaluate for pneumonia. However, she was worried about the current pandemic with COVID-19 and decided to avoid any medical facility. The pressure has become progressive with worsening shortness of breath with activity and difficulty lying flat, so she did finally decide to come and seek medical attention. Currently cardiac enzymes are negative. She does have an elevation in her proBNP with reports of congestive heart failure, however, ejection fraction and no signs of diastolic dysfunction on the last 2 echocardiograms that she has had with the most recent one being December 2018, a little over year ago. But given the symptoms, we will go ahead and admit her. We will consult Dr. De Luna who is actually her ruby engineer for further treatment and evaluation. PAST MEDICAL HISTORY: 1. GERD. 2. CAD with GA in 2009 that required cardiac stent. 3. Questionable congestive heart failure. Her last ejection fraction was normal and there was no diastolic dysfunction. 4. Hypertension. 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 6. History of cervical cancer but has had a hysterectomy. 7. Chronic pain in her neck and the back of her head. 8. Dysautonomia. 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 10. October had pneumonia. 11. Anxiety. 12. Hypothyroidism. SURGICAL HISTORY: 1. Appendectomy. 2. Cholecystectomy. 3. Cardiac stent in 2009. 4. Loop recorder in 2015. 5. Hysterectomy. 6. Tonsillectomy. 7. Left Achilles tendon repair. 8. Oral surgery. SOCIAL HISTORY: Denies tobacco, alcohol or illicit drug use. She has 2 adult children, 1 adult son. She is living alone on disability. FAMILY HISTORY: Mother had coronary disease and dementia. Father had coronary disease. ALLERGIES: Imitrex, Toradol, morphine, onion, tramadol, and migraine medications. HOME MEDICATIONS: While these have not been reconciled yet, so those will need to be reconciled. REVIEW OF SYSTEMS: Fourteen point review of systems are complete and all were negative except for those mentioned in above HPI. She has noticed a little bit of swelling in the lower extremities, occasionally her heart races, pain in the back of the neck and the head, numbness and tingling in the left arm, some nausea, some ups and downs with her blood pressure with the range being 72 to 150 systolically. Shortness of breath with exertion, chest pressure, occasionally dizziness with standing. PHYSICAL EXAMINATION: VITAL SIGNS: Temperature 98.5 degrees, heart rate 71, respiratory rate 15, blood pressure 144/93, O2 saturation 99% on room air, 5 feet 3 inches tall 180 pounds. BMI 31.9. GENERAL: Ms. Marylu Barney is a 49-year-old female. She is in no acute distress. She is able answer questions appropriately. HEENT: Atraumatic, normocephalic. Pupils equal, round, reactive to light. Extraocular movements intact. Mucous membranes are moist. NECK: Trachea midline. CARDIOVASCULAR: S1, S2. Regular rate and rhythm. No rubs, gallops, murmurs. +1 lower extremity edema. +2 dorsalis and radial pulses. Negative for JVD or carotid bruits. PULMONARY: Clear to auscultate bilateral breath sounds. No accessory muscle use or work of breathing noted. GI: Soft, nontender, nondistended. Positive bowel sounds x4. EXTREMITIES: Moves all extremities equally. Full range of motion. NEUROLOGIC: A and O x3. Follows commands. Sensory is intact. SKIN: Warm, dry, intact. LABORATORY DATA: White blood cells 8000, hemoglobin 12, hematocrit 38, platelet count 204,000. INR 0.97, PTT is 31.4. Sodium 142, potassium 4.0, BUN 7, creatinine 0.8, glucose 108, calcium 9.9, bilirubin 0.45, AST 18, ALT 14. CK 42, troponin 52. ProBNP 1125. Albumin 4.1. IMAGING: Chest x-ray, no acute findings. EKG normal sinus rhythm, rate 68, QTc is 482. There are some T-wave inversions in the V leads. ASSESSMENT AND PLAN: 1. Chest pressure with history of coronary artery disease and cardiac stent with history of GA in 2009. We will continue with aspirin. Once her home medications are verified will resume the beta ministerio and her statin. 2. Hypertension. We will continue with home medications once reconciled. 3. History of [place]'s disease or adrenal gland deficiency. Once her hydrocortisone is verified, we will resume that as well. 4. History of anxiety, looks like she might take clonazepam. We will resume that when it is verified and the Zoloft. 5. Hypothyroidism. We will continue with Synthroid once it is verified. 6. Hyperlipidemia. Continue Lipitor once it is verified. 7. Deep venous thrombosis prophylaxis, Lovenox. Dictated by ACE Lozano for Gavin Nguyen MD cc: ACE Lozano MD I have seen and examined Ms. Barney today. Ms Barney presents with chest pain with abnormal markers. She has hx CAD. I have reviewed her labs and imagine studies. I have discussed plan with Dr. De Luna. Ms Barney will be transferred to [facility] for further evaluation. I have started her on Zosyn for the cavitary lesion in her left lung. I agree with the above notes. Plan discussed with BUD. VON
--- NOTE | 2020-02-09 16:27 | CARDIOLOGY CONSULTATION ---
DATE: 02/09/2020 REASON FOR CONSULTATION: Cardiology was consulted for chest pain and shortness of breath. HISTORY: Ms. Marylu Barney is a 49-year-old lady with known coronary artery disease, history of myocardial infarction in 2020. She also has gastroesophageal reflux disease. She comes in with complaints of having had increasing shortness of breath associated with chest pain. She also says that she has a pleuritic component of chest pain where she has some intermittent sharp pains in the back radiating to her base of her neck and shoulder. The chest pressure she describes as moderate and heavy sensations as well. She has not sought medical urgency. As given the COVID, she was advised to go to the emergency room by her primary physician, she avoided coming here. She came to the emergency room, and chest x-ray was unremarkable. She has elevated D-dimers. We will set her up to undergo a CT angiogram of her chest to rule out pulmonary embolism. Her cardiac enzymes are negative. Electrocardiogram revealed normal sinus rhythm with symmetrical T-wave inversions in the anterior leads, and compared to previous EKGs, T-waves were normal. Two sets of cardiac enzymes were negative. REVIEW OF SYSTEMS: A 14-point review of systems was done. GI: There is no history of nausea, vomiting, or diarrhea. There is no history of hematemesis or melena. Central nervous system: No focal weakness to suggest a CVA or TIA. Genitourinary: There is no dysuria or hematuria. Respiratory: There is no history of cough, expectoration, or hemoptysis. There is no history of fevers or chills. PAST MEDICAL HISTORY: 1. Myocardial infarction in 2009 with a stent placement to the right coronary artery. Last cardiac catheterization at [facility] was on 01/12/2018. At that time, left main was normal. Left anterior descending artery gave rise to medium sized diagonal arteries. The second diagonal artery had moderate to severe disease in a small vessel. The mid left anterior descending artery moderate to severe disease focal 60 to 70 percent stenosis. Beyond that, relatively small vessel left circumflex proximal portion of this branch demonstrates moderate to severe 60 to 70 percent focal stenosis inferior ramus. Severe stenosis in a small vessel. The right coronary artery was dominant with patent stent. Medical management recommended at that time. 2. History of hypertension. 3. 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 4. Cervical cancer. She has had hysterectomy. 5. Cardiac loop implanted in 2015 in [place]. 6. Appendectomy. 7. Cholecystectomy. 8. Hysterectomy. 9. History of dysautonomia. 10. History of hypertension. 11. Left Achilles tendon repair. HOME MEDICATIONS: 1. Estradiol. 2. Omeprazole. 3. Sertraline. 4. Aspirin. 5. Hydrocortisone for dysautonomia. 6. Clonidine 0.1. 7. Levothyroxine 25. 8. Tizanidine 4 mg p.r.n. 9. Losartan 100. 10. Coreg 6.25 mg p.o. b.i.d. ALLERGIES: She is allergic to sumatriptan, Ketoralac, morphine, and tramadol. FAMILY HISTORY: Mother had coronary artery disease and dementia. SOCIAL HISTORY: She denies tobacco, alcohol or illicit drug abuse. She has 2 children. PHYSICAL EXAMINATION: Vital Signs: Blood pressure was 144/93. Jugular venous pressure was normal. First and second heart sounds were heard. There is no S3, S4, or gallop. Respiratory: Normal air entry. There are no crepitations or rhonchi. Abdomen: Soft, nontender. There was no guarding or rigidity. Bowel sounds were heard. Central nervous system: Alert and was moving all 4 extremities. Examination of extremities revealed no pedal edema. HEENT: Atraumatic, normocephalic. Pupils were equal and reacting to light. LABORATORY: WBC 8000. Hemoglobin 12, hematocrit 38, and platelet 204,000. INR 0.97, creatinine 0.8. BUN 7. Two sets of cardiac enzymes were negative. ProBNP 1125. ASSESSMENT AND PLAN: 1. Ms. Marylu Barney is a 49-year-old lady with history of gastroesophageal reflux disease, hypertension, dysautonomia, aneurysm of the left optic nerve in the past. Myocardial infarction status post stent placement to the right coronary artery in 2009 comes with complaints of increasing shortness of breath associated with recurrent chest discomfort. She also has a pleuritic component of chest pain in addition to the above. She has been ruled out for myocardial infarction by cardiac enzymes. 2. Echocardiogram revealed hypokinesis in the inferoapical region of the left ventricle which is a new finding compared to echocardiograms done in 2019 in October. Given her symptoms, this is very suggestive of coronary artery disease with high probability of having obstructive coronary artery disease given known coronary artery disease, and new wall motion abnormalities. We will continue with the aspirin. 3. She is on beta blockers. We will continue with beta blockers and PAUL inhibitors. 4. Her D-dimers was elevated today at 1.98. We will plan for a CT angiogram of her lungs to rule out pulmonary embolism, and plan for a left heart catheterization if her pulmonary embolism studies are negative. 5. She also has new T-wave inversions symmetrical in the anterior leads compared to electrocardiograms in the past. 6. She has had adrenal gland deficiency or [place]'s disease. She is on corticosteroids. I have not made any changes. 7. Thank you for the consult. We will follow hospital course. cc: Norman De Luna MD
[2020-02-09] MEDS ORDERED: 1/2 NS 1,000 ML IV SCH (16:30)
--- NOTE | 2020-02-09 16:46 | Diag Imaging Result Doc PS360 ---
EXAM: CT ANGIOGRM PULMONARY ARTERIES INDICATION: SOB/HI D-D TECHNIQUE: This exam was performed using automated exposure control, adjustment of mA or kV according to patient size, and/or use of iterative reconstruction technique. Thin section axial images and 3-D MIPS were obtained. COMPARISON: 06/24/2018 FINDINGS: There is no evidence of pulmonary embolism. There is no evidence of aortic dissection or aneurysm. There is no cardiomegaly. There is a thick-walled cavitary lesion involving the left upper lobe inferiorly on image 50 of series 4 measuring up to 2.6 x 1.6 cm axially. There is adjacent mild airspace infiltrate. An atypical infectious process and neoplasm are differential considerations. There are a few small shotty mediastinal and left hilar lymph nodes that are nonspecific. They could be reactive. There are scattered subcentimeter noncalcified nodules bilaterally that are nonspecific. For reference, there is a nodule at the left lung apex measuring 6.7 mm axially. There is a nodule in the right lower lobe on image 56 of series 4 that measures up to 4.1 mm. There is no pleural fluid collection and no pneumothorax. Limited views of the upper abdomen are unremarkable. IMPRESSION: 1.Thick-walled cavitary lesion involving the left upper lobe. This may represent an atypical infectious process. However, neoplasm cannot completely be excluded. 2.Small shotty nonspecific mediastinal and left hilar lymph nodes. 3.Scattered subcentimeter noncalcified nodules bilaterally as described. 4.No evidence of pulmonary embolism. Electronically signed by Ravin Henley 02/09/2020 4:43 PM
[2020-02-09] MEDS ORDERED: KLONOPIN PO PRN (18:21)
[2020-02-09] MEDS ORDERED: ZANAFLEX PO PRN (18:21)
[2020-02-09] MEDS ORDERED: CATAPRES PO PRN (18:21)
[2020-02-09] MEDS ORDERED: PHENERGAN PO PRN (18:21)
[2020-02-09] MEDS: DILAUDID IV PRN ×2 (18:39→21:56)
[2020-02-09] MEDS: ZOSYN 3.375 GM in NS 50 ML IV SCH (18:42)
[2020-02-09] MEDS ORDERED: DOXYCYCLINE PO SCH (21:00)
[2020-02-09] MEDS ORDERED: COREG PO SCH ×2 (21:00)
[2020-02-09] MEDS ORDERED: LIPITOR PO SCH ×2 (21:00)
[2020-02-09] MEDS ORDERED: CORTEF PO SCH (21:00)
[2020-02-10] MEDS: ZOSYN 3.375 GM in NS 50 ML IV SCH ×2 (00:21→06:02)
[2020-02-10] MEDS: DILAUDID IV PRN ×2 (02:28→07:47)
[2020-02-10] MEDS: ZOFRAN IV PRN (02:28)
--- NOTE | 2020-02-10 06:35 | Extremity Venous Study ---
PROCEDURE NAME: Venous U/S Bilateral Legs - 02/09/2020 REQUESTING PHYSICIAN: Dr. De Luna. TECHNICAL SERVICES LIBRARIAN: Gloria. INDICATIONS: Shortness of breath since Thursday, rule out DVT and PE. EQUIPMENT: Trov Vivid E9 ultrasound system with a 9 L-D transducer. FINDINGS: Images of bilateral lower extremity venous systems were obtained in both sagittal and transverse planes. Doppler was used to evaluate veins for spontaneity, phasicity, respiratory excursion, and digital augmentation. RESULTS: Normal venous compression. Normal venous flow. No obvious superficial or deep venous thrombosis noted. INTERPRETATION: Essentially normal bilateral lower extremity venous study. cc: MD Fidelina Morales PA
[2020-02-10] MEDS ORDERED: PRILOSEC PO SCH ×2 (07:00)
--- NOTE | 2020-02-10 07:17 | EKG Report ---
Test Performed on : 02/10/2020 06:38:19 AM Test Reason : chest pain Blood Pressure : / mmHG Vent. Rate : 075 BPM Atrial Rate : 075 BPM P-R Int : 150 ms QRS Dur : 082 ms QT Int : 420 ms P-R-T Axes : 070 074 002 degrees QTc Int : 469 ms Normal sinus rhythm. T wave abnormality, consider anterior ischemia Prolonged QT Abnormal ECG When compared with ECG of 09-FEB-2020 10:25, (Unconfirmed) No significant change was found Confirmed by Nilesh MCKNIGHT, Yoshi Angel ([id number]) on 02/11/2020 11:48:38 AM
[2020-02-10 07:18] VITALS: BP 126/86
[2020-02-10 07:25] LABS: BASO# 0.03 X1000 (0.0-0.2); BASO% 0.4 % (0.0-0.8); EOS# 0.18 X1000 (0.0-0.7); EOS% 2.5 % (0.0-10.0); HEMATOCRIT 36.3 % (37.0-47.0); HEMOGLOBIN 11.3 g/dL (12.0-16.0); LYMPH# 1.91 X1000 (1.2-3.4); LYMPH% 26.6 % (20.5-51.1); MCH 27.9 PG (27-31); MCHC 31.1 g/dL (33-37); MCV 89.6 FL (81-99); MONO# 0.43 X1000 (0.11-0.59); MPV 12.1 FL (7.4-10.4); NEUT# 4.63 X1000 (1.4-6.5); NEUT% 64.5 % (42.2-75.2); PLT 211 X1000 (130-400); RBC 4.05 XMIL (4.2-5.4); WBC 7.18 X1000 (4.8-10.8)
[2020-02-10 07:47] LABS: AGAP 13; ALB/GLOB RATIO 1.1; ALBUMIN 3.9 g/dL (3.5-5.0); ALKALINE PHOSPHATASE 166 U/L (32-104); BUN 7 mg/dL (8-22); CALCIUM 9.1 mg/dL (8.8-10.2); CHLORIDE 105 mmol/L (98-107); COSMO 284; CREATININE 0.9 mg/dL (0.5-0.9); ESTIMATED GFR > 60; GLUCOSE 112 mg/dL (70-104); GOT 25 U/L (10-30); GPT 14 U/L (10-36); MAGNESIUM 1.8 mg/dL (1.5-2.7); POTASSIUM 4.4 mmol/L (3.5-5.1); SODIUM 143 mmol/L (136-145); TCO2 25 mmol/L (25-35); TOTAL BILIRUBIN 0.76 mg/dL (0.20-1.00); TOTAL PROTEIN 7.3 g/dL (6.3-8.3)
[2020-02-10] MEDS ORDERED: ESTRACE PO SCH (09:00)
[2020-02-10] MEDS ORDERED: ASPIRIN EC PO SCH (09:00)
[2020-02-10] MEDS ORDERED: SYNTHROID PO SCH (09:00)
[2020-02-10] MEDS ORDERED: ZOLOFT PO SCH (09:00)
[2020-02-10] MEDS ORDERED: ASPIRIN PO SCH ×2 (09:00)
[2020-02-10] MEDS ORDERED: COZAAR PO SCH ×2 (09:00)
--- NOTE | 2020-02-10 09:59 | DISCHARGE SUMMARY ---
ADMISSION DATE: 02/09/2020 DISCHARGE DATE: 02/10/2020 PRIMARY CARE PHYSICIAN: Dr. Miguel Angel Roberts CLERICAL AIDE TEACHER: Dr. De Luna. PRIMARY EMT B: Dr. Vail in [place], [place]. ADMISSION DIAGNOSES: 1. Chest pressure with history of coronary artery disease and cardiac stent with history of PR in 2009. 2. Hypertension. 3. History of [employer]'s disease or adrenal gland deficiency. 4. History of anxiety. 5. Hypothyroidism. 6. Hyperlipidemia. DISCHARGE DIAGNOSES: 1. Chest pressure with history of coronary artery disease and cardiac stent with history of PR in 2009. Concern for ACS. 2. Hypertension. 3. History of Sony's disease or adrenal gland deficiency. 4. History of anxiety. 5. Hypothyroidism. 6. Hyperlipidemia. SUMMARY OF FINDINGS: This is a 49-year-old female who states Thursday evening started having some shortness of breath to the point that she could not lie down to sleep, increased swelling in her lower extremities, and denied any cough. Denied fever. She states she has chest pressure that radiates into the back of the neck, back of the head, and down the arm. Left arm had some numbness and tingling. The pressure progressively worsened, and the shortness of breath worsened with activity and difficulty lying flat so she came in for medical attention. We consulted Cardiology. We did a pulmonary arteriogram. No evidence of pulmonary embolism. There was a thick walled cavity lesion involving the left upper lobe that may represent an atypical infectious process. However, neoplasm could not be completely excluded. Bilateral lower extremity venous Doppler showed essentially normal bilateral lower extremity venous study. She had been ruled out for myocardial infarction by cardiac enzymes. Echocardiogram revealed hypokinesis in the inferior apical region of the left ventricular, which is a new finding compared to the echocardiogram done in October of 2019. Given her symptoms, felt that this was very suggestive of coronary artery disease with a high probability of having obstructive coronary artery disease given known coronary artery disease, and new wall motion abnormalities. She also had new T-wave inversions symmetrical in the anterior leads compared to the EKG in the past. She is being transferred to [facility] for cardiac intervention, and for further evaluation and treatment. Medications will be continued at their discretion. Follow up will be once she leaves their facility for them to assign. TIME SPENT: This is a 35 minute discharge. Dictated by ACE Rodney for Gavin Nguyen MD cc: ACE Rodney MD Malcolm R. Hendricks, MD I have seen and examined Ms. Barney today. Ms. Barney continue to have on and off chest pain. She is been transferred to [facility] for higher level of care. She is on antibiotics for cavitary lesion in the left lung. I agree with the above discharge summary. RKQ. LONGORIA
--- NOTE | 2020-02-14 04:49 | ECHO REPORT ---
ORDER DATE: 02/09/2020 MEASUREMENTS: Septal thickness 1.1, left ventricular internal diameter in diastole 3.8, posterior wall thickness 1.1, left ventricular internal diameter in systole 2.5, and left atrium 3.8. SUMMARY: 1. Technically difficult study due to limited acoustic window quality. 2. The aortic valve is trileaflet and opens normally on 2-dimensional images. Peak gradient across the valve is less than 10 mmHg. There is trace aortic regurgitation. Mitral, tricuspid, and pulmonic valves are all without evidence of structural abnormality with trace tricuspid regurgitation and trace pulmonic insufficiency. The estimated systolic PA pressure by Doppler is 30 mmHg. Aortic root is normal in size. 3. Normal left ventricular dimensions demonstrated. The estimated left ventricular ejection fraction is approximately 60 to 65 percent. There is hypokinesis of the apical septum and very apex left ventricle suggested. Left atrium, right atrium, and right ventricle are normal in size with grossly preserved right ventricular systolic function. 4. No pericardial effusion. 5. Appearance of inferior vena cava suggests normal central venous pressure. CONCLUSIONS: 1. Technically difficult study. 2. Trace aortic regurgitation. 3. Trace tricuspid regurgitation with normal systolic PA pressure by Doppler. 4. Estimated left ventricular ejection fraction of 60 to 65 percent. Hypokinesis of apical septum and very apex suggested. cc: MD Jodi Pavon CRNP
== END 2020-02-10 10:50 | disposition short-term general hospital (02) | DRG 303 ==
LOC: SUPCPDRO → ED 10:45 → 3N 14:59
PROVIDERS: ATTEND Internal Medicine